=== PATIENT | female | born 1950 | race Caucasian/White ===

== ENCOUNTER → 2020-03-17 15:20 | Outpatient (BNVA) | payer MEDICARE, SELFPAY | PROVIDERS: PCP Internal Medicine; Visit Provider Internal Medicine | DX: R05 Cough (principal); R93.89 Abnormal findings on diagnostic imaging of other specified body structures; J40 Bronchitis, not specified as acute or chronic; F17.210 Nicotine dependence, cigarettes, uncomplicated; Z71.6 Tobacco abuse counseling | CPT/HCPCS: 99203 ==

== ENCOUNTER 2020-03-24 10:35 | Outpatient (REF) | payer MEDICARE, SELFPAY ==
--- NOTE | 2020-03-24 10:34 | CT_ITS ---
EXAMINATION: CT CHEST WITHOUT CONTRAST CLINICAL INFORMATION: For further evaluation of abnormal findings seen on the recent chest x-ray. COMPARISON: Chest x-ray of 01/28/2020, selected images of the head and neck CTA of 06/22/2017, chest x-ray of 10/11/2015. Renal ultrasound of 01/08/2008. TECHNIQUE: Multidetector volumetric CT imaging of the chest was done. Axial MIP volume rendering provided. Sagittal and coronal reformatted images were obtained. This CT examination was performed using dose optimization techniques as appropriate, variously including the following: *Automated exposure control. *Adjustment of mA and/or kV according to patient size (this includes techniques or standardized protocols for targeted exams where dose is matched to indication/reason for exam; i.e. extremities or head). *Use of iterative reconstruction technique. DLP: 93.89 mGy-cm FINDINGS: SQL DATA ANALYST: Unremarkable. LUNGS: No significant nodules, masses or ground-glass opacities are noted. A punctate calcified granuloma in the right apex is redemonstrated. Mild changes of centrilobular emphysema in the upper lobes. MEDIASTINUM: No significant nodules are seen in the thyroid. There is no evidence of pathologically enlarged mediastinal or hilar adenopathy. Dwxqtszl-hr-kdpwtd coronary calcifications are noted. Small hiatal hernia. Cardiac size is normal. Trachea and central bronchi are well patent. PLEURA: There is no pleural effusion. No pleural mass or thickening. AXILLA: No lymphadenopathy. UPPER ABDOMEN: Vascular calcifications are noted including renal arterial calcifications. A 2.1 cm low-attenuation lesion in the liver (series 3 image 53) represents a cyst by CT Hounsfield units criteria. Mild fullness of the right adrenal gland without discrete nodule. Nodule versus focal thickening in the left adrenal gland measuring 1.4 x [address] Hounsfield units of less than 10 suggesting adenomatous change. Lobulated contour of the right kidney in the upper pole laterally, with isodense to slightly hypodense appearance, corresponding to the more anterior lesion/bulge that appears to be a corresponding simple cyst on the previous ultrasound of 01/08/2008. The more posterior bulge is not fully evaluated on the CT. OSSEOUS STRUCTURES: No acute or suspicious osseous lesions. Multilevel mild degenerative changes in the spine. IMPRESSION: 1. No significant finding is noted corresponding to the suspected fullness noted in the left inferior hilum on the chest x-ray of 01/28/2020. 2. No significant pulmonary nodule or findings. Mild changes of emphysema. 3. Jhekslyk-lo-ohfpzi coronary calcifications. 4. Small hiatal hernia. 5. A 2.1 cm liver cyst. 6. A 1.4 x 1.0 cm left adrenal nodule representing adenoma. 7. Lobulated contour along the lateral cortex in the upper pole of the right kidney, more anterior lobulation appears to be corresponding to the simple cyst noted on the previous ultrasound. The more posterior bulge is not completely evaluated on the CT. Consider focused ultrasound correlation.
== END 2020-03-24 10:36 | disposition home or self-care (01) ==
LOC: HO.CT 10:35
PROVIDERS: Absent Provider Internal Medicine Cardiovascular Disease; PCP Internal Medicine; Visit Provider Internal Medicine
DX: J40 Bronchitis, not specified as acute or chronic (principal); R93.89 Abnormal findings on diagnostic imaging of other specified body structures
CPT/HCPCS: 71250

== ENCOUNTER 2020-04-14 08:40 | Outpatient (REF) | payer MEDICARE, SELFPAY ==
--- NOTE | 2020-04-14 12:20 | PFT_ITS ---
FLOWS: FEV1 of 94% of predicted at 1.82 L. FVC 94% of predicted at 2.43 L. FEV1 to FVC ratio of 0.75. No bronchodilator response. LUNG VOLUMES: Total lung capacity 120% of predicted at 5.53 L. Residual volume 150% of predicted at 3.14 L. Slow vital capacity 94% of predicted at 2.39 L. Expiratory reserve volume 48% of predicted at 0.26 L. Diffusion capacity is mildly decreased. IMPRESSION: No obstructive or restrictive ventilatory defect. No bronchodilator response. Increased residual volume suggests air trapping. Decreased expiratory reserve volume suggests extrathoracic restriction likely secondary to abdominal obesity. Decreased diffusion capacity suggests emphysema. MD WATSON Miguel/MODL / [id number]
== END 2020-04-14 08:41 | disposition home or self-care (01) ==
LOC: HO.RESP 08:40
PROVIDERS: Visit Provider Internal Medicine
DX: R05 Cough (principal); R49.0 Dysphonia; F17.200 Nicotine dependence, unspecified, uncomplicated; Z79.899 Other long term (current) drug therapy; Z79.82 Long term (current) use of aspirin
CPT/HCPCS: 94060; 94727; 94729; 99212

== ENCOUNTER 2020-04-20 09:48 | Outpatient (REF) | payer MEDICARE, SELFPAY ==
[2020-04-20 12:02] LABS: Blood Urea Nitrogen 17 mg/dL (9-16); Estimated Glomerular Filt Rate > 60
== END 2020-04-20 09:49 | disposition home or self-care (01) ==
LOC: HO.HMGCLDS 09:48
PROVIDERS: PCP Internal Medicine; Visit Provider Otolaryngology
DX: J38.3 Other diseases of vocal cords (principal)
CPT/HCPCS: 82565; 84520

== ENCOUNTER 2020-04-21 09:05 | Outpatient (REF) | payer MEDICARE, SELFPAY ==
--- NOTE | 2020-04-21 09:07 | CT_ITS ---
EXAMINATION: CT SOFT TISSUE NECK WITH CONTRAST CLINICAL INFORMATION: Larynx protocol. Left vocal. COMPARISON: None. TECHNIQUE: Following the administration of 100 mL of Omnipaque 300 intravenous contrast, helical imaging was performed in the axial plane with generation of coronal and sagittal reformatted images. This CT examination was performed using dose optimization techniques as appropriate, variously including the following: *Automated exposure control *Adjustment of mA and/or kV according to patient size (this includes techniques or standardized protocols for targeted exams where dose is matched to indication/reason for exam; i.e. extremities or head) *Use of iterative reconstruction technique DLP: 344 mGy-cm FINDINGS: There is bulky soft tissue lesion seen involving the left false and true vocal folds, on the left aryepiglottic fold, and anterior commissure. There is further tumor extending across the midline with involvement of the right-sided true vocal fold. There are sclerotic changes within the left arytenoid. No discrete subglottic extension is seen. A cystic/necrotic right level IIa lymph node is seen measuring 2.5 cm. No additional enlarged lymph nodes are seen. There are bilateral palatine tonsilloliths. The base of tongue appears normal. No oral cavity lesion is seen. The bilateral parotid and submandibular glands appear normal. The thyroid gland demonstrates heterogeneous attenuation related to small nodules. No upper mediastinal adenopathy is seen. There is no consolidation within the upper lungs. Background changes of emphysema are noted. Atheromatous changes are seen in the neck arteries with stenosis seen involving the proximal right internal carotid artery and left carotid bifurcation which further evaluation with carotid ultrasound could be performed. The imaged intracranial contents appear normal. Degenerative changes are seen within the spine. There is fusion across C6-C7. No destructive osseous lesions are seen. CT/CT soft tissue neck w con IMPRESSION: Bulky soft tissue lesion involving the left-sided false and true vocal folds, aryepiglottic fold and extension to the anterior commissure and right-sided true vocal fold. Metastatic adenopathy seen on the right at level 2A. No additional enlarged lymph nodes identified.
[2020-04-21] MEDS: iohexoL 350 MG/ML 100 ML INFUS..BTL IV (10:20)
== END 2020-04-21 09:06 | disposition home or self-care (01) ==
LOC: HO.CT 09:05
PROVIDERS: PCP Internal Medicine; Visit Provider Otolaryngology
DX: C32.9 Malignant neoplasm of larynx, unspecified (principal)
CPT/HCPCS: 70491; Q9967

== ENCOUNTER → 2020-08-31 13:29 | Outpatient (BNVA) | payer MEDICARE, SELFPAY | PROVIDERS: PCP Internal Medicine; Visit Provider Internal Medicine Cardiovascular Disease | DX: I25.10 Atherosclerotic heart disease of native coronary artery without angina pectoris (principal); I10 Essential (primary) hypertension | CPT/HCPCS: 99212 ==

== ENCOUNTER → 2021-02-15 12:19 | Outpatient (BNVA) | payer MEDICARE, SELFPAY | PROVIDERS: PCP Internal Medicine; Referring Provider Internal Medicine; Visit Provider Internal Medicine Cardiovascular Disease | DX: I25.10 Atherosclerotic heart disease of native coronary artery without angina pectoris (principal); I45.10 Unspecified right bundle-branch block; F17.210 Nicotine dependence, cigarettes, uncomplicated; Z98.890 Other specified postprocedural states; Z88.8 Allergy status to other drugs, medicaments and biological substances; Z79.82 Long term (current) use of aspirin; Z79.899 Other long term (current) drug therapy | CPT/HCPCS: 93005; 99212 ==

== ENCOUNTER 2021-05-07 07:59 | Outpatient (REF) | payer MEDICARE, SELFPAY ==
--- NOTE | ~2021-05-07 | MM_ITS ---
EXAMINATION: MM SCREENING DIGITAL BREAST TOMOSYNTHESIS, BILATERAL CLINICAL INFORMATION: Screening. Asymptomatic. The lifetime risk of breast cancer based on the Tyrer-Cuzick Model is 4%. COMPARISON: Mammography: 10/03/2013, 06/15/2009 TECHNIQUE: Digital breast tomosynthesis is performed in both the craniocaudal and mediolateral oblique views along with computer-aided detection (CAD). Synthesized 2D images are generated from the tomosynthesis. FINDINGS: There are scattered areas of fibroglandular density (ACR BI-RADS breast composition Category b). Breast tissue composition borders on predominantly fatty. The left breast is unremarkable. There is no interval mass or architectural abnormality. Neither breast shows abnormal calcifications. The axilla and skin contours are unremarkable. The right breast has a new 4 mm circumscribed nodule anterior 9:00 position approximately 4 cm from nipple. Patient will be recalled to further characterize with targeted ultrasound. MM/MM tomosynthesis screening BI IMPRESSION: 1. Right: New 4 mm circumscribed nodule anterior 9:00 position, possibly tiny cyst. 2. Left: No mammographic evidence of malignancy. ASSESSMENT: BI-RADS 0: Incomplete - Need Additional Imaging Evaluation RECOMMENDATION: 1. Targeted ultrasound right breast. 2. Radiology department staff will contact the patient for additional imaging. This patient's information was entered into a reminder system with a target due date for their next mammogram.
== END 2021-05-07 08:00 | disposition home or self-care (01) ==
LOC: HO.MAMMO 07:59
PROVIDERS: Visit Provider Internal Medicine
DX: Z12.31 Encounter for screening mammogram for malignant neoplasm of breast (principal)
CPT/HCPCS: 77063; 77067

== ENCOUNTER 2021-05-13 12:56 | Outpatient (REF) | payer MEDICARE, SELFPAY ==
--- NOTE | ~2021-05-13 | US_ITS ---
EXAMINATION: US DIAGNOSTIC ULTRASOUND BREAST, RIGHT CLINICAL INFORMATION: Recall from screening for new circumscribed nodule anterior 9:00 position under 5 mm. COMPARISON: Mammography 05/07/2021, 10/03/2013. TECHNIQUE: Ultrasound right breast is targeted to the outer quadrant. Grayscale imaging and color Doppler are performed without and with harmonics. FINDINGS: There is a small simple cyst 9:00 position approximately 5 cm from nipple measuring under 5 mm corresponding to the nodule on mammography. This is anechoic circumscribed with increased through-transmission of sound. No associated color flow. There is no solid mass or architectural abnormality. Results are discussed with the patient and family at time of visit. US/US breast RT limited IMPRESSION: Small simple cyst 9:00 position corresponding to finding on recent screening mammography. ASSESSMENT: BI-RADS 2: Benign RECOMMENDATION: Routine annual mammography screening. This patient's information was entered into a reminder system with a target due date for their next mammogram.
== END 2021-05-13 12:57 | disposition home or self-care (01) ==
LOC: HO.MAMMO 12:56
PROVIDERS: Visit Provider Internal Medicine
DX: N63.15 Unspecified lump in the right breast, overlapping quadrants (principal)
CPT/HCPCS: 76642

== ENCOUNTER 2021-06-15 15:20 | Emergency (ER) | payer MEDICARE, SELFPAY ==
--- NOTE | ~2021-06-15 | CT_ITS ---
EXAMINATION: CT HEAD WITHOUT CONTRAST CT CERVICAL SPINE WITHOUT CONTRAST CLINICAL INFORMATION: Fall, head injury after syncopal episode. COMPARISON: CT soft tissues of the neck 04/21/2020. CT head 01/17/2008. TECHNIQUE: Contiguous axial imaging was performed from the skull base to vertex without intravenous administration of contrast. Contiguous axial imaging was performed from the upper chest through the skull base without intravenous administration of contrast. Coronal and sagittal reformats were obtained at the acquisition workstation. This CT examination was performed using dose optimization techniques as appropriate, variously including the following: *Automated exposure control *Adjustment of mA and/or kV according to patient size (this includes techniques or standardized protocols for targeted exams where dose is matched to indication/reason for exam; i.e. extremities or head) *Use of iterative reconstruction technique DLP: 262 mGy-cm FINDINGS: Head: There is no evidence of acute intracranial hemorrhage or edematous territorial infarction. A few foci of hypoattenuation in the periventricular and deep white matter are consistent with mild microangiopathy. Rebolledo-white matter differentiation is preserved. The ventricles are normal in size and configuration. No evidence for obstructive hydrocephalus. No abnormal mass effect or midline shift. No extra-axial fluid collections. No acute soft tissue or osseous abnormalities. The mastoid air cells and paranasal sinuses are clear. Cervical Spine: The atlantooccipital and atlantoaxial articulations remain well aligned. Straightening of the normal cervical lordosis. Otherwise, there is anatomic alignment of the vertebral bodies and posterior elements. No evidence of acute fracture or subluxation. Redemonstration of fusion of the C6-C7 vertebral bodies. Mild to moderate degenerative changes are not significantly progressed since 2019. There is no prevertebral soft tissue swelling. Fullness and bulky soft tissue in the area of the vocal cords and aryepiglottic folds are indeterminate in this patient with history of a prior lesion at this site, and overall evaluation is incomplete in the absence of intravenous contrast. Normal appearance of the thyroid gland. There is a background of emphysematous changes, peripheral reticulation and septal thickening in the lung apices, not significantly changed since 2019. A 0.3 cm pulmonary nodule in the right upper lobe (12:276) is unchanged. A calcified nodule laterally within the right apex (12:257) is also unchanged. CT/CT cervical spine wo con IMPRESSION: 1. No acute intracranial abnormalities. 2. No acute cervical spinal fractures or malalignment. 3. Indeterminate soft tissue thickening and fullness in the region of the vocal cords and aryepiglottic folds for which correlation with direct visualization or CT of the neck with intravenous contrast is recommended in this patient with history of a prior at this site and metastatic cervical lymphadenopathy. 4. Emphysematous changes with stable 0.3 cm right upper lobe pulmonary nodule.
--- NOTE | ~2021-06-15 | XR_ITS ---
EXAMINATION: XR CHEST CLINICAL INFORMATION: Syncope COMPARISON: Chest x-ray 01/28/[address] chest 01/23/2020 TECHNIQUE: 2 views of the chest were obtained. FINDINGS: No significant abnormality is noted involving the heart, lungs, mediastinum, bony thorax or soft tissues. Previously seen lobular contour overlying the left miya which was shown to have no corresponding abnormality on CT scan, is no longer present. XR/XR chest 2V IMPRESSION: No acute intrathoracic disease.
[2021-06-15 15:35] VITALS: BP 142/70; BP 148/94; PULSE 66; PULSE 70; RESP 16; TEMP 36.3; O2SAT 93; O2SAT 96; BMI 25.0
--- NOTE | 2021-06-15 15:41 | ECG_ITS ---
Test Reason : Syncope Blood Pressure : / mmHG Vent. Rate : 066 BPM Atrial Rate : 066 BPM P-R Int : 158 ms QRS Dur : 132 ms QT Int : 412 ms P-R-T Axes : 079 079 028 degrees QTc Int : 431 ms Normal sinus rhythm Right bundle branch block Abnormal ECG When compared with ECG of 23-DEC-2007 20:12, Right bundle branch block is now Present Borderline criteria for Inferior infarct are no longer Present Referred By: Eladio Henderson Electronically Signed By:MARLON ESPINAL MD
--- NOTE | 2021-06-15 16:00 | ED_ITS ---
HPI - Syncope General Chief Complaint: Syncope Stated Complaint: syncope/covid + Time Seen by Provider: 06/15/21 15:22 Source: patient and EMS Mode of arrival: EMS Limitations: no limitations History of Present Illness HPI narrative: 71-year-old female with history of esophageal cancer status post chemo and radiation x1 year ago. She has she has been having decreasing appetite and increasing difficulty eating. Does not go down for several days. She was scheduled to get biopsy of her throat today which had to be canceled she tested positive for COVID on Sunday. She states she is vaccinated. She states she has cough and shortness of breath. Today she was in the bathroom when she passed out. Her daughter who lives with her found her on the ground EMS was called she was brought to ED she denies headache shoulder pain back pain or hip or knee pain. She does not remember the fall. Related Data Home Medications Medication Instructions Recorded Confirmed aspirin 81 mg tablet,delayed 81 mg PO DAILY 03/17/20 06/15/21 release levothyroxine 75 mcg tablet 1 tab PO DAILY 06/15/21 06/15/21 oxycodone 5 mg/5 mL oral solution 5 ml G-TUBE Q6H PRN 06/15/21 06/15/21 Previous Rx's Medication Instructions Recorded metoprolol tartrate 25 mg tablet 25 mg PO BID #60 tab 02/15/21 nitroglycerin 0.1 mg/hr 1 patch TRANSDERMAL DAILY #30 ea 02/15/21 transdermal 24 hour patch (Nitro-Dur) rosuvastatin 10 mg tablet (Crestor) 10 mg PO DAILY #30 tab 02/15/21 Allergies Allergy/AdvReac Type Severity Reaction Status Date / Time Zantac Allergy Unknown rash Verified 02/15/21 12:37 Review of Systems Review of Systems: Review of systems: General: Fall syncope Patient denies any fever chills recent illness Musculoskeletal: Denies back pain or body aches or other injuries HEENT: denies headache, runny nose, ear pain Respiratory: shortness of breath, cough Cardiovascular: no chest pain or palpitations : denies dysuria, frequency Abdomen: no nausea vomiting denies abdominal pain Extremities: no swelling, no pain Skin: no diaphoresis Yes all other systems are reviewed and are negative [facility] Past Medical History Medical History Bronchitis CAD (coronary artery disease) Carotid disease, bilateral Cough Hoarseness HTN (hypertension) PVD (peripheral vascular disease) Smoker Smoker Surgical History H/O carotid endarterectomy History of cardiac cath Social History Social History Cigarette Packs Per Day: 0.25 Cigarettes Per Day: 5.0 Advance Directives: Yes Advance Directives on File: Yes Advance Directives Date on File: 03/24/20 Physical Exam Vital Signs: Vital Signs: Last Vital Signs Temp 97.4 F 06/15/21 15:35 Pulse 64 06/15/21 16:34 Resp 12 06/15/21 16:34 BP 147/67 H 06/15/21 16:34 Pulse Ox 94 06/15/21 16:34 BMI result Body Mass Index 25.0 Neurological exam: CN II- XII tested. Patient is alert and oriented to person place and time. Patient has no dysphagia or dysarthia, denies good vision in all four vision [place] no nystagmus on exam, good strength to upper and lower extremities with normal reflexes to brachioradialis, wrist, patella and achilles. Negative romberg, good finger to nose and heel to antoine. General: Well-appearing well-nourished in no signs of distress HEENT: Normocephalic atraumatic no hemotympanum no nasal septal hematoma Neck: No signs of JVD, no masses no tenderness or lymphadenopathy Cardiovascular: Regular rate and rhythm Respiratory: Clear to auscultation bilaterally Abdomen: Soft nontender no masses Extremities: Normal pedal pulses no signs of edema full range of motion able lift arms above head as well as band ankles knees and hips no tenderness to palpation anywhere Skin: Dry warm no rashes Back: No tenderness full ROM MDM - Syncope MDM Narrative Medical decision making narrative: Concern for dehydration with decreased appetite and weakness patient's history of esophogeal CA cancer which might have recurred. I will get a CT scan of the head neck as she did fall and hit her head 1812 Patient is covid positive looks to have thickening around her vocal cords which is old. She is protecting her airway just fine at this time. She is not hypoxic. She is not agreeable to coming in for a syncope workup. She states she feels fine she wants to go home I feel that with her chronic conditions that she will benefit from Corinne title feel like force her to stay here. It is likely related to dehydration she was in the bathroom this happened the patient is happy with plan to go home. Lab Data Result diagrams: 06/15/21 16:42 06/15/21 17:41 Labs: Lab Results 06/15/21 06/15/21 06/15/21 Range/Units 16:42 16:42 16:43 WBC 2.6 L (4.8-10.8) X10*3/uL RBC 4.01 L (4.20-5.50) X10*6/uL Hgb 12.4 (12.0-16.0) g/dl Hct 39.0 (37.0-47.0) % MCV 97.3 (80.0-98.0) fL MCH 30.9 (27.0-33.0) pg MCHC 31.8 (31.0-35.0) g/dl RDW 12.8 (11.0-16.0) % Plt Count 179 (160-400) X10*3/uL MPV 10.0 (9.4-12.3) fL Immature Gran % (Auto) 0.4 (0.0-0.4) % Neut % (Auto) 67.3 (45-73) % Lymph % (Auto) 13.2 L (20-40) % Dupage % (Auto) 18.7 H (2-11) % Eos % (Auto) 0.0 (0-4) % Baso % (Auto) 0.4 (0-2) % Lymph # (Auto) 0.3 L (1.2-4.9) X10*3/uL Dupage # (Auto) 0.5 (0.1-1.2) X10*3/uL Eos # (Auto) 0.0 (0.0-0.4) X10*3/uL Baso # (Auto) 0.0 (0.0-0.2) X10*3/uL Abs Immat Gran (auto) 0.01 (0.00-0.03) X10*3/uL Absolute Neuts (auto) 1.7 L (2.0-8.3) x10*3/uL Absolute Nucleated RBC 0.000 (0.0-0.012) X10*3/uL Nucleated RBC % (auto) 0.0 (0.0-0.2) /100WBC PT (9.9-13.0) SEC INR (0.9-1.1) Sodium (135-145) mmol/L Potassium (3.3-5.1) mmol/L Chloride (96-108) mmol/L Carbon Dioxide (22-29) mmol/L Anion Gap (12-20) BUN (9-16) mg/dL Creatinine (0.5-1.4) mg/dL Estim Creat Clear Calc Estimated GFR Random Glucose (60-115) mg/dL Lactic Acid (0.5-2.0) mmol/L Calcium (8.4-10.2) mg/dL Total Bilirubin (0.0-1.0) mg/dL Direct Bilirubin (0.0-0.5) mg/dL AST (5-31) U/L ALT (0-31) U/L Alkaline Phosphatase (39-117) U/L Troponin I High Sens 10.2 (<3.5-17.0) ng/L Total Protein (6.5-8.0) g/dL Albumin (3.5-5.0) g/dL Lipase (8-78) U/L COVID-19 ([facility]) Positive A (Negative) COVID-19 Clin Com See Note 06/15/21 06/15/21 06/15/21 Range/Units 16:43 17:41 17:41 WBC (4.8-10.8) X10*3/uL RBC (4.20-5.50) X10*6/uL Hgb (12.0-16.0) g/dl Hct (37.0-47.0) % MCV (80.0-98.0) fL MCH (27.0-33.0) pg MCHC (31.0-35.0) g/dl RDW (11.0-16.0) % Plt Count (160-400) X10*3/uL MPV (9.4-12.3) fL Immature Gran % (Auto) (0.0-0.4) % Neut % (Auto) (45-73) % Lymph % (Auto) (20-40) % Dupage % (Auto) (2-11) % Eos % (Auto) (0-4) % Baso % (Auto) (0-2) % Lymph # (Auto) (1.2-4.9) X10*3/uL Dup[place] # (Auto) (0.1-1.2) X10*3/uL Eos # (Auto) (0.0-0.4) X10*3/uL Baso # (Auto) (0.0-0.2) X10*3/uL Abs Immat Gran (auto) (0.00-0.03) X10*3/uL Absolute Neuts (auto) (2.0-8.3) x10*3/uL Absolute Nucleated RBC (0.0-0.012) X10*3/uL Nucleated RBC % (auto) (0.0-0.2) /100WBC PT 11.9 (9.9-13.0) SEC INR 1.0 (0.9-1.1) Sodium 140 (135-145) mmol/L Potassium 4.8 (3.3-5.1) mmol/L Chloride 102 (96-108) mmol/L Carbon Dioxide 31 H (22-29) mmol/L Anion Gap 12 (12-20) BUN 22 H (9-16) mg/dL Creatinine 0.84 (0.5-1.4) mg/dL Estim Creat Clear Calc 53.6 Estimated GFR > 60 Random Glucose 104 (60-115) mg/dL Lactic Acid 1.5 (0.5-2.0) mmol/L Calcium 9.0 (8.4-10.2) mg/dL Total Bilirubin 0.3 (0.0-1.0) mg/dL Direct Bilirubin < 0.2 (0.0-0.5) mg/dL AST 25 (5-31) U/L ALT 13 (0-31) U/L Alkaline Phosphatase 60 (39-117) U/L Troponin I High Sens (<3.5-17.0) ng/L Total Protein 6.4 L (6.5-8.0) g/dL Albumin 3.8 (3.5-5.0) g/dL Lipase 20 (8-78) U/L COVID-19 ([facility]) (Negative) COVID-19 Clin Com ECG Data Attestation: I personally reviewed and interpreted this ECG as follows: ECG interpretation date: 06/15/21 ECG interpretation time: 16:03 Prior ECG tracings: not available for review Interpretation: Rate 66 right bundle branch block no signs of ischemia no ST el evations or depressions Discharge Plan Discharge Clinical Impression: Syncope, Head injury, Esophageal cancer, COVID-19, Acute dehydration Patient Disposition: Left Against Medical Advice Instructions: Dehydration (ED), COVID-19 (Coronavirus Disease 2019) (ED), Head Injury (ED), Syncope (ED) Additional Instructions: I do feel that you need to stay here in the hospital but did not feel he can foresee stay you have COVID-19 A breathing can get much worse where oxygenation is fine at this time. He also very dehydrated and he passed out. He has multiple reasons for admission understand your desire to go home number your leaving its medical advice as I recommended admission. He do change of mind please do not hesitate to come back to emergency department. Prescriptions: No Action oxycodone 5 mg/5 mL solution 5 ml G-tube Q6H PRN (Reason: Pain) RF: 0 mirtazapine 15 mg tablet,disintegrating 1 tab PO BEDTIME RF: 0 levothyroxine 75 mcg tablet 1 tab PO DAILY RF: 0 aspirin 81 mg tablet,delayed release (DR/EC) 81 mg PO DAILY RF: 0 rosuvastatin [Crestor] 10 mg tablet 10 mg PO DAILY Qty: 30 RF: 5 metoprolol tartrate 25 mg tablet 25 mg PO BID Qty: 60 RF: 5 nitroglycerin [Nitro-Dur] 0.1 mg/hr patch 24 hour 1 patch transdermal DAILY Qty: 30 RF: 5
[2021-06-15 16:34] VITALS: BP 147/67; PULSE 64; RESP 12; O2SAT 94
[2021-06-15] MEDS: 0.9 % Sodium Chloride 500 ML 999 ML IV (16:48)
[2021-06-15 16:50] LABS: MANUAL DIFF FLAG NO
[2021-06-15 16:53] LABS: Basophils Percent Auto 0.4 % (0-2); Hemoglobin 12.4 g/dl (12.0-16.0); Imm Gran Abs Auto 0.01 X10*3/uL (0.00-0.03); Imm Gran Pct Auto 0.4 % (0.0-0.4); Lymphocytes Absolute Auto 0.3 X10*3/uL (1.2-4.9); Lymphocytes Percent Auto 13.2 % (20-40); Mean Corpuscular HGB Conc 31.8 g/dl (31.0-35.0); Mean Corpuscular Hemoglobin 30.9 pg (27.0-33.0); Mean Corpuscular Volume 97.3 fL (80.0-98.0); Monocytes Absolute Auto 0.5 X10*3/uL (0.1-1.2); Monocytes Percent Auto 18.7 % (2-11); Neutrophils Absolute Auto 1.7 x10*3/uL (2.0-8.3); Neutrophils Percent Auto 67.3 % (45-73); Platelet Count 179 X10*3/uL (160-400); Red Blood Count 4.01 X10*6/uL (4.20-5.50); Red Cell Distribution Width 12.8 % (11.0-16.0); White Blood Count 2.6 X10*3/uL (4.8-10.8)
[2021-06-15 17:05] LABS: COVID-19 Test Positive (Negative); IDNOW Serial# 9DD0AD1C
[2021-06-15 17:05] LABS: Lactic Acid 1.5 mmol/L (0.5-2.0)
[2021-06-15 17:19] LABS: Troponin-I High Sensitivity 10.2 ng/L (<3.5-17.0)
[2021-06-15 18:04] LABS: Alanine Aminotransferase 13 U/L (0-31); Albumin Level 3.8 g/dL (3.5-5.0); Alkaline Phosphatase 60 U/L (39-117); Anion Gap 12 (12-20); Aspartate Amino Transferase 25 U/L (5-31); Bilirubin Direct < 0.2 mg/dL (0.0-0.5); Bilirubin Total 0.3 mg/dL (0.0-1.0); Blood Urea Nitrogen 22 mg/dL (9-16); Carbon Dioxide 31 mmol/L (22-29); Chloride 102 mmol/L (96-108); Creatinine Clr Calc Pharmacy 53.6; Estimated Glomerular Filt Rate > 60; Glucose Random 104 mg/dL (60-115); Lipase 20 U/L (8-78); Potassium 4.8 mmol/L (3.3-5.1); Sodium 140 mmol/L (135-145); Total Protein 6.4 g/dL (6.5-8.0)
[2021-06-15 18:06] LABS: Prothrombin Time 11.9 SEC (9.9-13.0)
[2021-06-15 18:24] LABS: Influenza A PCR NEGATIVE (Negative); Influenza B PCR NEGATIVE (Negative); Resp Syncy Virus RNA Qual PCR NEGATIVE (Negative); SARS COV2 PCR INHOUSE POSITIVE (Negative)
== END 2021-06-15 19:02 | disposition left against medical advice (07) ==
PROVIDERS: Emergency Provider Student in an Organized Health Care Education/Training Program
DX: R55 Syncope and collapse (principal); U07.1 COVID-19; E86.0 Dehydration; S09.90XA Unspecified injury of head, initial encounter; I10 Essential (primary) hypertension; Z85.01 Personal history of malignant neoplasm of esophagus; Z92.21 Personal history of antineoplastic chemotherapy; Z92.3 Personal history of irradiation; W19.XXXA Unspecified fall, initial encounter; Y93.9 Activity, unspecified; Y92.009 Unspecified place in unspecified non-institutional (private) residence as the place of occurrence of the external cause; Y99.9 Unspecified external cause status
CPT/HCPCS: 0241U; 36415; 70450; 71046; 72125; 80048; 80076; 83605; 83690; 84484; 85025; 85610; 87040; 87635; 93005; 99284

== ENCOUNTER → 2021-08-24 10:36 | Outpatient (BNVA) | payer MEDICARE, SELFPAY | PROVIDERS: PCP Internal Medicine; Referring Provider Internal Medicine; Visit Provider Internal Medicine Cardiovascular Disease | DX: I25.10 Atherosclerotic heart disease of native coronary artery without angina pectoris (principal) | CPT/HCPCS: 99212 ==

== ENCOUNTER 2022-01-05 13:41 | Outpatient (REF) | payer MEDICARE, SELFPAY ==
--- NOTE | ~2022-01-05 | US_ITS ---
EXAMINATION: US NON-INVASIVE ASSESSMENT OF THE ARTERIES OF BOTH LOWER EXTREMITIES CLINICAL INFORMATION: Peripheral vascular disease. COMPARISON: 06/17/2018 and 05/29/2019. TECHNIQUE: Segmental ankle pulse volume recording, pressure measurement at the ankle and ankle brachial indices were obtained of the lower extremity arterial system bilaterally. In addition, bilateral lower extremity duplex ultrasound was performed with velocity measurements and waveform analysis in the common femoral arteries, profunda femoris arteries, proximal mid and distal superficial femoral arteries, popliteal arteries and tibial vessels. This study was performed at rest only. FINDINGS: Brachial pressure right: 139 mmHg. Previously, 152. Left: 134 mmHg. Previously, 135. a) AT REST: 1. The ankle-brachial indices are: RIGHT: 0.6. Previously, 0.7 and LEFT: 0.6 previously, left 0.68. >0.97-1.25 = normal - no significant arterial disease. 0.75-0.96 = mild peripheral arterial disease. 0.5-0.74 = moderate peripheral arterial disease. <0.50 = severe peripheral arterial disease. 2. Segmental pressure at ankle: On the right, PT 78 mmHg. Previously, 107, DP 68 mmHg. Previously, 102. On the left, PT 82 mmHg. Previously, 96, DP 70 mmHg. Previously, 104. 3. PVR waveform at ankle: Dampened bilaterally. 4. Duplex exam. Velocities in cm/sec and phasicity as well as the presence of plaque are reported below. RIGHT LEG: Common Femoral: 251 cm/s and monophasic. Previously, 111. Profunda Femoris: 217 cm/s and monophasic. Previously, 172. Proximal SFA: 17 cm/s and monophasic. Previously, 45. Mid SFA: No flow. Previously, 25. Distal SFA: 97 cm/s and monophasic. Previously, 101. Popliteal: 35 cm/s and monophasic. Previously, 79. Posterior Tibial: 32 cm/s and monophasic. Previously, 22. LEFT LEG: Common Femoral: 192 cm/s and monophasic. Previously, 130. Profunda Femoris: 89 cm/s and monophasic. Previously, 83. Proximal SFA: 255 cm/s and monophasic. Previously, 180. Mid SFA: 159 cm/s and monophasic. Previously, 96. Distal SFA: 76 cm/s and monophasic. Previously, 85. Popliteal: 69 cm/s and monophasic. Previously, 185. Posterior Tibial: 69 cm/s and monophasic. Previously, 9. Incidental note made of bilateral Gerardo's cysts. US/US arterial duplex LE BI IMPRESSION: 1. By LAUREL criteria, there is moderate peripheral vascular disease bilaterally. 2. Plaque is present bilaterally. 3. On the right, there is severe disease previously reported in the mid right superficial femoral artery appears to have progressed to an occlusion. There now appears to be hemodynamically significant stenosis in the right common femoral artery which was not apparent previously. 4. On the left, there is moderate common femoral disease and severe hemodynamically significant proximal left SFA disease.
== END 2022-01-05 13:42 | disposition home or self-care (01) ==
LOC: HO.US 13:41
PROVIDERS: PCP Internal Medicine; Visit Provider Surgery Vascular Surgery
DX: I70.213 Atherosclerosis of native arteries of extremities with intermittent claudication, bilateral legs (principal)
CPT/HCPCS: 93923; 93925

== ENCOUNTER → 2022-01-10 10:15 | Outpatient (BNVA) | payer MEDICARE, SELFPAY | PROVIDERS: PCP Internal Medicine; Visit Provider Surgery Vascular Surgery | DX: I73.9 Peripheral vascular disease, unspecified (principal); I77.9 Disorder of arteries and arterioles, unspecified | CPT/HCPCS: 99212 ==

== ENCOUNTER 2022-01-13 12:53 | Outpatient (REF) | payer MEDICARE, SELFPAY ==
[2022-01-13 14:12] LABS: Blood Urea Nitrogen 24 mg/dL (9-16); Estimated Glomerular Filt Rate > 60
== END 2022-01-13 12:54 | disposition home or self-care (01) ==
LOC: HO.HMGCLDS 12:53
PROVIDERS: Visit Provider Surgery Vascular Surgery
DX: I73.9 Peripheral vascular disease, unspecified (principal)
CPT/HCPCS: 36415; 82565; 84520

== ENCOUNTER 2022-01-17 07:43 | Outpatient (REF) | payer MEDICARE, SELFPAY ==
--- NOTE | ~2022-01-17 | CT_ITS ---
STUDY PERFORMED: CTA ABDOMEN, PELVIS AND LOWER EXTREMITY RUNOFF WITH CONTRAST HISTORY: Pain in popliteal fossa and calf. COMPARISON: CT chest 03/24/2020. DESCRIPTION: Routine abdominal aorta and lower extremity runoff CTA protocol with contrast was performed. 100 mL of Omnipaque-350 was administered. 3D POSTPROCESSING: Multiple 3-D angiographic images were processed from the initial data set by the [facility] under concurrent physician supervision. This CT examination was performed using dose optimization techniques as appropriate, variously including the following: *Automated exposure control *Adjustment of mA and/or kV according to patient size (this includes techniques or standardized protocols for targeted exams where dose is matched to indication/reason for exam; i.e. extremities or head) *Use of iterative reconstruction technique DLP: 558 mGy-cm FINDINGS: VASCULAR: ABDOMINAL AORTA: Significant atherosclerotic disease present in the abdominal aorta especially infrarenal with extensive calcification with some noncalcified plaque. There is mild narrowing of the distal aorta just above the bifurcation with the opacified lumen measuring about 8 mm in size. RIGHT LOWER EXTREMITY: - Common Iliac Artery: Extensive atherosclerotic change with mild stenosis proximally. - Internal Iliac Artery: Extremely diseased, with occlusions. - External Iliac Artery: Severe disease. A distal stent is present. Just above the level of the stent, there is a focal tight stenosis. Within the stent, there is intimal hyperplasia with a tight stenosis distally. - Common Femoral Artery: Stent mentioned above extends just into the common femoral artery with a tight stenosis just below the level of the stent.. - Profunda Femoral Artery: Patent. - Superficial Femoral Artery: Occluded at its origin with reconstitution at the adductor canal. - Popliteal Artery: Free of significant disease. - Tibioperoneal Trunk: Stenoses are present. - Posterior Tibial Artery: Mild disease proximally but patent distally. - Peroneal Artery: Marked disease. - Anterior Tibial Artery: Diseased proximally but patent distally. LEFT LOWER EXTREMITY: - Common Iliac Artery: There is a tight stenosis of the common iliac/external iliac artery at it's junction (9:389). - Internal Iliac Artery: Severe disease, essentially occluded. - External Iliac Artery: Marked disease throughout with at least one area of extremely tight stenosis (9:445). - Common Femoral Artery: Severely stenotic. - Profunda Femoral Artery: Moderate narrowing. - Superficial Femoral Artery: Severe disease throughout with multiple areas of tight stenoses. - Popliteal Artery: Relatively free of disease. - Tibioperoneal Trunk: - Posterior Tibial Artery: Severe disease with occlusion midcalf. - Peroneal Artery: Severe disease throughout but patent. - Anterior Tibial Artery: Severe disease throughout except distally where the artery appears relatively normal extending into the foot. CELIOMESENTERIC ARTERIES: [id number] ostial disease involving the celiac, SMA and MADINA. RENAL ARTERIES: Single renal arteries bilaterally both with marked proximal stenoses. NONVASCULAR: Lung Bases: The visualized lung bases are unremarkable. Liver, Gallbladder and Biliary Tree: The liver is normal in size, shape, and attenuation. There is a 1.8 cm benign simple central liver cyst. No worrisome solid focal hepatic lesion or biliary ductal dilatation is present. The gallbladder is unremarkable with no evidence of radiopaque gallstones, gallbladder wall thickening, or obvious pericholecystic inflammatory changes. Pancreas: Unremarkable. Spleen: Unremarkable. Adrenal Glands: Small 1.5 cm left adrenal mass without significant change when compared to [address] At that time, Hounsfield unit measurements were fluid density consistent with a benign adenoma. Kidneys and Ureters: The kidneys are normal in size, shape, and attenuation. Bilateral benign Bosniak class I renal cortical cysts are seen. No worrisome solid renal masses are present. Calcifications in the kidneys most likely vascular and not nephrolithiasis. No hydronephrosis, hydroureter, or definitive calculi seen. No perinephric stranding. Bladder: Unremarkable. Gastrointestinal Tract: The small and large bowel are unremarkable aside from the presence of mild small bowel enterocele with prolapse of small bowel into perirectal fossa on the right. The appendix is unremarkable. Abdominal Wall: No significant hernia is appreciated. Lymph Nodes: No retroperitoneal lymphadenopathy. Pelvic Viscera: Unremarkable. Osseous Structures: Degenerative changes are present in the spine most marked at L3-L4 and L5-S1. No bony destructive lesion. CT/CT angio abd aorta runoff IMPRESSION: 1. Significant aortic disease at the bifurcation with luminal narrowing to 8 mm. 2. On the right, there is a mild proximal common iliac stenosis with severe external iliac artery disease. External iliac artery/common femoral artery stent with intimal hyperplasia and stenoses above and below the stent. SFA occlusion with reconstituted popliteal with runoff as described above. 3. On the left, there is significant common iliac and external iliac as well as common femoral disease. Severe disease throughout the SFA with relatively normal-appearing popliteal and diseased runoff as described above. 4, Bilateral renal artery stenoses. 5. Nonvascular findings significant for benign simple hepatic cyst, unchanged left adrenal benign adenoma, bilateral Bosniak class I renal cysts which need no further imaging or follow-up, small bowel enterocele and degenerative changes in the spine.
[2022-01-17] MEDS: iohexoL 350 MG/ML 100 ML INFUS..BTL IV (09:01)
== END 2022-01-17 07:44 | disposition home or self-care (01) ==
LOC: HO.CT 07:43
PROVIDERS: Visit Provider Surgery Vascular Surgery
DX: I73.9 Peripheral vascular disease, unspecified (principal)
CPT/HCPCS: 75635; Q9967

== ENCOUNTER 2022-02-28 09:53 | Outpatient (REF) | payer MEDICARE, SELFPAY ==
--- NOTE | ~2022-02-28 | US_ITS ---
EXAMINATION: US EXTRACRANIAL CAROTID DUPLEX, BILATERAL CLINICAL INFORMATION: Carotid stenosis COMPARISON: 10/28/2018 TECHNIQUE: Real-time ultrasound and Doppler techniques (integrating B-mode 2-D vascular images, Doppler spectral analysis and color-flow Doppler imaging) were utilized to interrogate the extracranial carotid arteries, the vertebral arteries and proximal subclavian arteries bilaterally. The degree of stenosis is determined by criteria similar to NASCET. FINDINGS: Right Side: 1. There is moderate atherosclerotic plaque seen in the bifurcation/proximal ICA region. 2. The common carotid artery PSV proximally is 73.0 cm/s and distally 87.0 cm/s. 3. The proximal internal carotid artery velocities are 149 cm/s systolic and 33.9 cm/s diastolic. 4. The proximal external carotid artery PSV is 211 cm/s. 5. The vertebral artery shows antegrade flow. 6. The subclavian artery waveforms are normal. Left Side: 1. There is moderate atherosclerotic plaque seen in the bifurcation/proximal ICA region. 2. The common carotid artery PSV proximally is 107 cm/s and distally 102 cm/s. 3. The proximal internal carotid artery velocities are 270 cm/s systolic and 64.1 cm/s diastolic. 4. The proximal external carotid artery PSV is 142 cm/s. 5. The vertebral artery shows antegrade flow. 6. The subclavian artery waveforms are normal. US/US carotid duplex BI IMPRESSION: 1. RIGHT: Moderate, hemodynamically significant stenosis of the proximal right internal carotid artery corresponding to a 50-79% stenosis by velocity criteria. 2. LEFT: Moderate, hemodynamically significant stenosis of the proximal left internal carotid artery corresponding to a 50-79% stenosis by velocity criteria. 3. Velocities have increased within the both internal carotid arteries compared to the prior exam consistent with worsening stenosis, especially within the left internal carotid artery
== END 2022-02-28 09:54 | disposition home or self-care (01) ==
LOC: HO.US 09:53
PROVIDERS: Visit Provider Surgery Vascular Surgery
DX: I65.23 Occlusion and stenosis of bilateral carotid arteries (principal)
CPT/HCPCS: 93880

== ENCOUNTER 2022-03-06 08:59 | Outpatient (REF) | payer MEDICARE, SELFPAY ==
[2022-03-06 11:47] LABS: Cholesterol 177 mg/dL; HDL Cholesterol 51 mg/dL; LDL Cholesterol Calculated 111 mg/dl; Triglycerides 76 mg/dL
== END 2022-03-06 09:00 | disposition home or self-care (01) ==
LOC: HO.HMGCLDS 08:59
PROVIDERS: Visit Provider Internal Medicine Cardiovascular Disease
DX: I25.10 Atherosclerotic heart disease of native coronary artery without angina pectoris (principal)
CPT/HCPCS: 36415; 80061

== ENCOUNTER → 2022-03-09 09:04 | Outpatient (BNVA) | payer MEDICARE, SELFPAY | PROVIDERS: PCP Internal Medicine; Visit Provider Surgery Vascular Surgery | DX: I77.9 Disorder of arteries and arterioles, unspecified (principal); I73.9 Peripheral vascular disease, unspecified; I25.10 Atherosclerotic heart disease of native coronary artery without angina pectoris; I10 Essential (primary) hypertension | CPT/HCPCS: 99212 ==

== ENCOUNTER 2022-04-12 07:44 | Day surgery (SDC) | payer MEDICARE, SELFPAY ==
[2022-04-12] VITALS (12 sets, daily range): BP systolic 118–171; BP diastolic 54–70; PULSE 67–75; RESP 18; TEMP 36.3–37; O2SAT 94–99; BMI 21.2
[2022-04-12 08:06] LABS: Basophils Percent Auto 0.5 % (0-2); Eosinophils Absolute Auto 0.3 X10*3/uL (0.0-0.4); Eosinophils Percent Auto 4.5 % (0-4); Hematocrit 37.6 % (37.0-47.0); Hemoglobin 12.1 g/dl (12.0-16.0); Imm Gran Abs Auto 0.02 X10*3/uL (0.00-0.03); Imm Gran Pct Auto 0.3 % (0.0-0.4); Lymphocytes Absolute Auto 0.8 X10*3/uL (1.2-4.9); MANUAL DIFF FLAG NO; Mean Corpuscular HGB Conc 32.2 g/dl (31.0-35.0); Mean Corpuscular Hemoglobin 30.5 pg (27.0-33.0); Mean Corpuscular Volume 94.7 fL (80.0-98.0); Mean Platelet Volume 9.4 fL (9.4-12.3); Monocytes Absolute Auto 0.6 X10*3/uL (0.1-1.2); Monocytes Percent Auto 9.9 % (2-11); Neutrophils Absolute Auto 4.2 x10*3/uL (2.0-8.3); Neutrophils Percent Auto 71.8 % (45-73); Platelet Count 259 X10*3/uL (160-400); Red Blood Count 3.97 X10*6/uL (4.20-5.50); Red Cell Distribution Width 13.1 % (11.0-16.0); White Blood Count 5.8 X10*3/uL (4.8-10.8)
[2022-04-12 08:23] LABS: Blood Urea Nitrogen 22 mg/dL (9-16); Creatinine Clr Calc Pharmacy 53.1; Estimated Glomerular Filt Rate > 60
[2022-04-12] MEDS: 0.9 % Sodium Chloride 1,000 ML 100 ML IVCONT (08:42)
--- NOTE | 2022-04-12 11:25 | P.OP_ITS ---
Operative Note Operative Note Date of Service: 04/12/22 Narrative: Angiogram report from [facility] Preoperative diagnosis: Atherosclerosis of bilateral lower extremity with activity limiting claudication Postoperative diagnosis: Same Procedure: 1. Ultrasound-guided right common femoral access 2. Ultrasound-guided left common femoral access 3. Aortogram 4. Left common iliac plasty 5. Right common iliac and external iliac plasty Surgeon:Herber Rubio M.D., FACS, RPVI [employer]ler Hand:None Anesthesia: Local with moderate conscious sedation. Total intraservice moderate sedation time was 74 minutes. I monitored the patient's level of consciousness and physiologic status continuously throughout the procedure. Specimens:none Drains:none Estimated blood loss: Less than 10 ml Implant: Medtronic Impact DCB 6 x 120; 6 x 80; 6 x 60 Indications: Very pleasant 71-year-old female with a prior history of endovascular intervention and an inside institution presents for activity limiting claudication. She has had noninvasive testing and was concerning for inflow disease. She now presents for endovascular intervention. The patient has signed the informed consent after reviewing risks, complications, benefits, and alternatives previously discussed with the patient. The patient was given the opportunity to ask any additional questions or voice any concerns. All questions were answered to the patient's satisfaction. Procedure in detail: Patient was brought to the angiography suite prior to which a time-out was called for patient identification and site verification. Bilateral groins were prepped and draped in the standard surgical fashion. Under ultrasound guidance right common femoral was punctured with micro puncture needle and wire. Subsequently a precision 4 [place] sheath was then placed. Bentson wire was advanced to the level of the aorta. 4 [place] Flush catheter was brought up and parked at the level of the renal arteries. Aortogram was then undertaken. In a similar fashion we recognized that the left common iliac stent had stenosis. So we punctured the left common iliac with a micro puncture needle and wire under ultrasound guidance. We then placed a 4 [place] sheath. We were able to traverse both lesions on the right and left iliac with a Glidewire Advantage. We confirmed true lumen with catheters instilled with contrast. Once this was accomplished we administered 3000 units of systemic heparin. After 5 minutes of circulation time we placed 6 [place] sheaths. We 1st turned our attention to the left iliac with a 6 x 100 balloon. In a similar fashion we initially plasty did the right side with a 6 x 40 regular balloon in the common iliac and the additional stents in the external iliac. We then brought in a 6 x 120 drug coated balloon in the left side and a 6 x 80 drug coated balloon on the right side. We did the kissing technique and we insufflated the balloon simultaneously these were brought into position in under 3 minutes and insufflated for a total of 3 minutes in duration. Once this was accomplished we did a completion angiogram demonstrated excellent result. We then turned our attention to the right external iliac. They had a prior stent there. We then placed a 6 x 60 drug coated balloon. Once again this was brought into position in under 3 minutes and insufflated for a total of 3 minutes in duration. Once this was all accomplished catheter wire sheath were then removed. StarClose closure devices were deployed bilaterally. Adequate hemostasis was achieved. Patient tolerated the procedure well. Returned to recovery with stable vitals. Interpretation of films: 1. Ultrasound demonstrates appropriate femoral puncture. Image of which was saved. 2. Aortogram demonstrates appropriate caliber aorta. Minimal disease. Appropriate take-off of the renals. 3. Iliac images demonstrate InStent restenoses of the left common iliac stent. InStent restenoses of the right common iliac stent. InStent restenoses of the right external iliac. 4. Completion angiogram demonstrated excellent flow through bilateral iliacs. Conclusion: 1. Successful plasty of bilateral iliacs with drug coated balloons. 2. Anticoagulation status: Patient will require aspirin and Plavix for 6 months. This note is constructed using voice recognition software. While every effort has been made to ensure accuracy, reinforcing steel erector errors may have been included. Thank you for allowing me to participate in the care of your patient. Yours sincerely, Herber Rubio MD, FACS, R.P.V.I.
[2022-04-12] MEDS: Clopidogrel Bisulfate 300 MG TABLET PO (12:05)
[2022-04-12] MEDS: Acetaminophen 325 MG TABLET 650 MG PO (13:20)
== END 2022-04-12 16:45 | disposition home or self-care (01) ==
PROVIDERS: Visit Provider Surgery Vascular Surgery
DX: I70.213 Atherosclerosis of native arteries of extremities with intermittent claudication, bilateral legs (principal); F17.210 Nicotine dependence, cigarettes, uncomplicated
CPT/HCPCS: 36415; 37220; 37222; 76937; 82565; 84520; 85025; C1725; C1726; C1769; C1887; C2623; J2250; J3010; Q9967

== ENCOUNTER 2022-04-23 12:23 | Emergency (ER) | payer MEDICARE, SELFPAY ==
--- NOTE | ~2022-04-23 | US_ITS ---
EXAMINATION: LEFT INGUINAL DUPLEX ARTERIAL ULTRASOUND CLINICAL INFORMATION: Question pseudoaneurysm COMPARISON: None TECHNIQUE: Targeted duplex Doppler evaluation of the left inguinal region. FINDINGS: The common femoral artery is patent with peak systolic velocity of 181 cm/s. There is a patent pseudoaneurysm off of the left common femoral artery with the neck measuring approximately 4 mm in diameter and with peak systolic velocity across the neck of approximately 59 cm/s. The pseudoaneurysm measures approximately 4 cm in diameter. No thrombus within the pseudoaneurysm is appreciated. Inferior and medial to the pseudoaneurysm there is a hematoma measuring approximately 7.8 x 4.7 x 8.0 cm in size without active blood flow to it. US/US arterial duplex LE LT IMPRESSION: Left groin pseudoaneurysm off of the common femoral artery measuring approximately 4 cm in largest dimension. Left inguinal hematoma without active flow within it. The technologist gave a preliminary report to Janine Viveros (nurse practitioner) at 1430 5:00 PM on April 23, 2022
[2022-04-23 12:37] VITALS: BP 148/92; BP 182/69; PULSE 65; PULSE 68; RESP 16; TEMP 37.2; O2SAT 100; O2SAT 99; BMI 22.6
--- NOTE | 2022-04-23 12:44 | ED.EXTPRO ---
HPI - Extremity Problem General Chief complaint: General Medical Stated complaint: LEFT GROIN PAIN Time Seen by Provider: 04/23/22 12:35 Source: patient, family and EMS Mode of arrival: EMS Limitations: no limitations History of Present Illness HPI Narrative: 71-year-old female with a history of peripheral artery disease presents with bilateral leg numbness from the knees down and pain and swelling and bruising to the left groin. Patient had aortogram, left common iliac plasty , right common iliac/external iliac plasty on 04/[address] Rubio (vascular). Patient reports since the procedure she has had some discomfort to both legs described as tightness and numbness from the knees down bilaterally. However the left groin has had increasing pain, swelling, bruising since the procedure. No fevers, chills. Family feels the left foot has been cool to touch Patient is on plavix/ASA Related Data Home Medications Medication Instructions Recorded Confirmed aspirin 81 mg tablet,delayed 81 mg PO DAILY 03/17/20 03/09/22 release levothyroxine 125 mcg tablet 125 mcg PO DAILY 03/09/22 03/09/22 Previous Rx's Medication Instructions Recorded nitroglycerin 0.1 mg/hr 1 patch transdermal DAILY #30 ea 10/26/21 transdermal 24 hour patch (Nitro-Dur) metoprolol tartrate 25 mg tablet 25 mg PO BID #60 tabs 03/15/22 rosuvastatin 40 mg tablet 40 mg PO DAILY #30 tabs 03/31/22 clopidogrel 75 mg tablet (Plavix) 75 mg PO DAILY #90 tabs 04/12/22 oxycodone 5 mg/5 mL oral solution 5 mg (5 mL) PO Q4H PRN pain 0 days 04/23/22 #90 mL Allergies Allergy/AdvReac Type Severity Reaction Status Date / Time Zantac Allergy Unknown rash Verified 03/09/22 09:15 Review of Systems Review of Systems: Yes all other systems are reviewed and are negative Constitutional: Constitutional: Reports no additional constitutional complaints, Denies body ache(s), Denies chills, Denies fever(s), Denies headache(s) and Denies weakness Eyes: Eyes: Reports no additional eye complaints and Denies change in vision ENT: Reports system reviewed and no additional complaints, except as documented, Denies dizziness, Denies headache(s), Denies nasal congestion, Denies nasal discharge and Denies neck pain Cardiovascular: Cardiovascular: Reports no additional cardiovascular complaints, Denies chest pain, Denies leg edema and Denies dyspnea Respiratory: Respiratory: Reports no additional respiratory complaints, Denies cough and Denies dyspnea Gastrointestinal: Gastrointestinal: Reports no additional gastrointestinal complaints, Denies abdominal pain, Denies diarrhea, Denies nausea and Denies vomiting Genitourinary: Genitourinary: Reports no additional female genitourinary complaints and Denies urinary incontinence Musculoskeletal: Musculoskeletal: Reports no additional musculoskeletal complaints, Denies back pain, Denies arthralgias, Denies joint swelling, Denies neck pain, Reports numbness, Reports radiating pain into limb and Denies tingling Integumentary/Breasts: Skin/Breast: Reports system reviewed and no additional complaints, except as docu and Denies rash Neurologic: Reports system reviewed and no additional complaints, except as documented, Denies Abnormal speech present, Denies dizziness, Denies headache(s), Reports numbness, Denies tingling and Denies weakness PMFSH Past Medical History Attestation statement: The following information was validated with the patient. Source: old records reviewed and nursing notes reviewed Medical History Bronchitis CAD (coronary artery disease) Carotid disease, bilateral Cough Hoarseness HTN (hypertension) PVD (peripheral vascular disease) Smoker Smoker Surgical History H/O carotid endarterectomy History of cardiac cath Social History Social History Patient Tobacco Use Status: Current everyday Tobacco user Cigarettes Per Day: 5 Advance Directives: Yes Advance Directives on File: Yes Advance Directives Date on File: 03/24/20 Physical Exam Vital Signs: Vital Signs: Last Vital Signs Temp 98.0 F 04/23/22 17:07 Pulse 68 04/23/22 17:07 Resp 16 04/23/22 17:07 BP 154/55 H 04/23/22 17:07 Pulse Ox 100 04/23/22 17:07 O2 Del Method 04/23/22 17:07 BMI result Body Mass Index 22.6 Const: General: cooperative, healthy appearing, comfortable and no acute distress Orientation/consciousness: patient oriented x3 Limitations: no limitations HEENT: Head: Yes normal to inspection Ears: hearing grossly normal bilaterally General nose exam: Normal external nose present Face and sinus: Yes normal facial exam Mouth: Normal oral and palatal mucosa present Throat: Yes posterior oropharynx normal Eyes: General: appearance normal, both eyes and all related structures Pupils: Equal, round and reactive pupils present Neck: Neck: Yes normal visual inspection Chest: Chest palpation & inspection: normal inspection of the chest Resp: Effort & Inspection: normal respiratory effort Auscultation: clear to auscultation bilaterally Cardio: Rate: regular rate Rhythm: regular rhythm Peripheral pulses: Peripheral pulses 2+ throughout GI: Inspection: Yes normal to inspection Palpation (GI): Soft to palpation and nontender Auscultation: normal bowel sounds Abdomen image: 1. Puncture site noted with hematoma and extensive surrounding ecchymosis over lower abdomen, left medial thigh and over groin. +femoral pulse. No thrill or bruit. 2. Puncture site noted to left groin. No ecchymosis/hematoma noted. +palpable pulse Back/Spine/Pelvis: Thoracic/Lumbar Spine: thoracic and lumbar spine normal to inspection Skin: General skin exam: no rashes or lesions noted Neuro: General: patient oriented x3, no focal motor deficits and normal sensation to monofilament Cranial nerves: Yes Equal, round and reactive pupils present Cognition (Neuro): normal cognition Speech: No Abnormal speech present Gait exam (Neuro): Normal gait present Motor exam (neuro): 5/5 motor strength present throughout Extrem: Other: Both lower extremities are warm to touch. Sensation is intact although patient reports is diminished. Patient is able to dorsiflex and plantar flex the feet and ankles with no difficulty. Normal cap refill. Pulses are diminished bilaterally-nursing to perform Doppler pulses General: Yes normal to inspection Course Course Course Narrative: Nursing able to obtain bilateral doppler pulses. Call to Dr Rubio Reevaluation(s) Reevaluation #1: [id number]-ultrasound shows a suture aneurysm approximately 4 cm with a large hematoma. Patient's hemoglobin on April 12 was 12.1. Today it is 8.8. Will discuss with vascular Reevaluation #2: 1600- IMPRESSION: Left groin pseudoaneurysm off of the common femoral artery measuring approximately 4 cm in largest dimension. ? Left inguinal hematoma without active flow within it. Second call to vascular to discuss. Consultations Consultation #1: [id number]-Spoke to Dr Rubio. Recommended arterial US to r/o pseudoaneyrsym -after the US returned I did speak to Dr Rubio again. He would like to see the patient in the office to do an injection of the pseudoaneurysm. He would like this to be done when the hematoma is improved. We discussed the patient's labs. He does not feel like patient needs any repeat CBC. Bleeding is controlled on the ultrasound. No active bleeding seen. He will see the patient in the office on Sunday. Will send patient home with oxycodone p.r.n. for pain. Reviewed worrisome signs and symptoms of when to return to the emergency room. Comfortable discharge home. Medications Administered Discontinued Medications Generic Name Dose Route Start Last Admin Trade Name Freq PRN Reason Stop Dose Admin Morphine Sulfate 2 mg 04/23/22 12:44 04/23/22 13:20 Morphine Sulfate 2 Mg/Ml Cartridge IVPUSH 04/23/22 12:45 2 mg ONCE ONE Administration Protocol MDM - Extremity (Nontraumatic) MDM Narrative Medical decision making narrative: 71 yo female with history of PAD who had an aortogram, left common iliac plasty and right common iliac/external iliac plasty on 04/12 here with numbness to bilateral lower legs from knees down since the procedure with tightness to both legs. Also increasing ecchymosis/swelling/pain to left groin puncture site with concern from family that left foot is cool to touch. Medical Records Attestation: I reviewed the patient's medical records. Lab Data Attestation: I reviewed the patient's lab results. Result diagrams: 04/23/22 13:37 04/23/22 13:17 Labs: Lab Results 04/23/22 04/23/22 04/23/22 Range/Units 13:17 13:17 13:37 WBC 8.1 (4.8-10.8) X10*3/uL RBC 2.90 L D (4.20-5.50) X10*6/uL Hgb 8.8 L D (12.0-16.0) g/dl Hct 27.0 L D (37.0-47.0) % MCV 93.1 (80.0-98.0) fL MCH 30.3 (27.0-33.0) pg MCHC 32.6 (31.0-35.0) g/dl RDW 13.2 (11.0-16.0) % Plt Count 381 D (160-400) X10*3/uL MPV 9.1 L (9.4-12.3) fL Immature Gran % (Auto) 0.5 H (0.0-0.4) % Neut % (Auto) 77.4 H (45-73) % Lymph % (Auto) 10.5 L (20-40) % [place] % (Auto) 7.9 (2-11) % Eos % (Auto) 3.1 (0-4) % Baso % (Auto) 0.6 (0-2) % Lymph # (Auto) 0.9 L (1.2-4.9) X10*3/uL [place] # (Auto) 0.6 (0.1-1.2) X10*3/uL Eos # (Auto) 0.3 (0.0-0.4) X10*3/uL Baso # (Auto) 0.1 (0.0-0.2) X10*3/uL Abs Immat Gran (auto) 0.04 H (0.00-0.03) X10*3/uL Absolute Neuts (auto) 6.3 (2.0-8.3) x10*3/uL Absolute Nucleated RBC 0.000 (0.0-0.012) X10*3/uL Nucleated RBC % (auto) 0.0 (0.0-0.2) /100WBC PT 11.4 (10.0-13.1) SEC INR 1.0 (0.9-1.1) Sodium 138 (135-145) mmol/L Potassium 4.5 (3.3-5.1) mmol/L Chloride 101 (96-108) mmol/L Carbon Dioxide 24 (22-29) mmol/L Anion Gap 18 (12-20) BUN 20 H (9-16) mg/dL Creatinine 0.74 (0.5-1.4) mg/dL Estim Creat Clear Calc 51.1 Estimated GFR > 60 Random Glucose 95 (60-115) mg/dL Calcium 9.3 (8.4-10.2) mg/dL Urine Color Urine Appearance Urine pH (5.0-9.0) Ur Specific [place] (1.005-1.025) Urine Protein (Neg-Trace) mg/dL Urine Glucose (UA) (Negative) mg/dL Urine Ketones (Negative) mg/dL Urine Blood (Negative) Urine Nitrite (Negative) Ur Leukocyte Esterase (Negative) 04/23/22 Range/Units 13:49 WBC (4.8-10.8) X10*3/uL RBC (4.20-5.50) X10*6/uL Hgb (12.0-16.0) g/dl Hct (37.0-47.0) % MCV (80.0-98.0) fL MCH (27.0-33.0) pg MCHC (31.0-35.0) g/dl RDW (11.0-16.0) % Plt Count (160-400) X10*3/uL MPV (9.4-12.3) fL Immature Gran % (Auto) (0.0-0.4) % Neut % (Auto) (45-73) % Lymph % (Auto) (20-40) % [place] % (Auto) (2-11) % Eos % (Auto) (0-4) % Baso % (Auto) (0-2) % Lymph # (Auto) (1.2-4.9) X10*3/uL [place] # (Auto) (0.1-1.2) X10*3/uL Eos # (Auto) (0.0-0.4) X10*3/uL Baso # (Auto) (0.0-0.2) X10*3/uL Abs Immat Gran (auto) (0.00-0.03) X10*3/uL Absolute Neuts (auto) (2.0-8.3) x10*3/uL Absolute Nucleated RBC (0.0-0.012) X10*3/uL Nucleated RBC % (auto) (0.0-0.2) /100WBC PT (10.0-13.1) SEC INR (0.9-1.1) Sodium (135-145) mmol/L Potassium (3.3-5.1) mmol/L Chloride (96-108) mmol/L Carbon Dioxide (22-29) mmol/L Anion Gap (12-20) BUN (9-16) mg/dL Creatinine (0.5-1.4) mg/dL Estim Creat Clear Calc Estimated GFR Random Glucose (60-115) mg/dL Calcium (8.4-10.2) mg/dL Urine Color Yellow Urine Appearance Clear Urine pH 7.5 (5.0-9.0) Ur Specific [place] 1.010 (1.005-1.025) Urine Protein Negative (Neg-Trace) mg/dL Urine Glucose (UA) Negative (Negative) mg/dL Urine Ketones Negative (Negative) mg/dL Urine Blood Negative (Negative) Urine Nitrite Negative (Negative) Ur Leukocyte Esterase Negative (Negative) Imaging Data arterial US: Attestation: I personally reviewed and interpreted this imaging study as follows: Radiologist's impression: [address] [address] Ultrasound Report Signed Patient: Bianca Swift MR#: [id number] : 1950 Acct:[id number] Age/Sex: 71 / F ADM Date: 04/23/22 Loc: .ED Attending Dr: Ordering Physician: Janine Viveros NP Date of Service: 04/23/22 Procedure(s): US arterial duplex LE LT Accession Number(s): [id number] cc: Janine Viveros NP~ EXAMINATION: LEFT INGUINAL DUPLEX ARTERIAL ULTRASOUND CLINICAL INFORMATION: Question pseudoaneurysm? COMPARISON: None? TECHNIQUE: Targeted duplex Doppler evaluation of the left inguinal region.? FINDINGS: The common femoral artery is patent with peak systolic velocity of 181 cm/s. There is a patent pseudoaneurysm off of the left common femoral artery with the neck measuring approximately 4 mm in diameter and with peak systolic velocity across the neck of approximately 59 cm/s. The pseudoaneurysm measures approximately 4 cm in diameter. No thrombus within the pseudoaneurysm is appreciated. Inferior and medial to the pseudoaneurysm there is a hematoma measuring approximately 7.8 x 4.7 x 8.0 cm in size without active blood flow to it. US/US arterial duplex LE LT IMPRESSION: Left groin pseudoaneurysm off of the common femoral artery measuring approximately 4 cm in largest dimension. ? Left inguinal hematoma without active flow within it. ? The technologist gave a preliminary report to Janine Viveros (nurse practitioner) at 1430 5:00 PM on April 23, 2022? Critical Care Time Critical Care Time Critical Care Time: Yes Total Critical Care Time: 30 Attestation: Discussion with vascular Discharge Plan Discharge Clinical Impression: Pseudoaneurysm following procedure, Anemia Patient Disposition: Home, Self-Care Instructions: Anemia (ED), Pseudoaneurysm (ED) Additional Instructions: You do have a pseudoaneurysm at the left groin. Dr. Rubio will likely treat this with an injection. He would like to see you at your scheduled appointment on Sunday. He will discuss this further with you at that time. Take the pain medication as needed Expect to have some pain. You also are mildly anemic so you may feel weak when you move around for the next few days Prescriptions: New oxycodone 5 mg/5 mL solution 5 mg PO Q4H PRN (Reason: pain) Qty: 90 0RF Rx Instructions: Partial Fill upon patient request. No Action nitroglycerin [Nitro-Dur] 0.1 mg/hr patch 24 hour 1 patch transdermal DAILY Qty: 30 5RF Rx Instructions: allow nitrate-free interval of approx. 10-12 hrs per 24-hour period metoprolol tartrate 25 mg tablet 25 mg PO BID Qty: 60 5RF rosuvastatin 40 mg tablet 40 mg PO DAILY Qty: 30 5RF clopidogrel [Plavix] 75 mg tablet 75 mg PO DAILY Qty: 90 1RF aspirin 81 mg tablet,delayed release (DR/EC) 81 mg PO DAILY levothyroxine 125 mcg tablet 125 mcg PO DAILY Referrals: Herber Rubio MD [Physician] - 2 days Interventions: ED Discharge Assessment Last Done: 04/23/22 17:11 Discharge Date/Time: 04/23/22 17:11
[2022-04-23 13:20] VITALS: RESP 18
[2022-04-23] MEDS: Morphine Sulfate 2 MG/ML CARTRIDGE IVPUSH (13:20)
--- NOTE | 2022-04-23 13:41 | PC.NURSE ---
patient a/ox4 . liban . lungs diminished throughout , patient has history of smoking . breathing even , labored due to pain level of 10 out of 10 . heart rate regular at 67 beats per minute . patient has history of angioplasty being done on April 12 at [facility] . Site of angioplasty is left groin is raised , swollen , bruised and yellow . patient also reports constant burning and pain shooting down her leg . patient has IV placed in right fore arm . labs have been sent . urine has been obtained . patient has been medicated with 2mg morphine as ordered by provider . positive pedal pulses noted by this RN by doppler bilaterally marked , provider aware . patient aware of plan of care .
[2022-04-23 13:42] LABS: MANUAL DIFF FLAG NO
[2022-04-23 13:50] LABS: Basophils Absolute Auto 0.1 X10*3/uL (0.0-0.2); Basophils Percent Auto 0.6 % (0-2); Eosinophils Absolute Auto 0.3 X10*3/uL (0.0-0.4); Eosinophils Percent Auto 3.1 % (0-4); Imm Gran Abs Auto 0.04 X10*3/uL (0.00-0.03); Imm Gran Pct Auto 0.5 % (0.0-0.4); Lymphocytes Absolute Auto 0.9 X10*3/uL (1.2-4.9); Lymphocytes Percent Auto 10.5 % (20-40); Mean Corpuscular HGB Conc 32.6 g/dl (31.0-35.0); Mean Corpuscular Hemoglobin 30.3 pg (27.0-33.0); Mean Corpuscular Volume 93.1 fL (80.0-98.0); Mean Platelet Volume 9.1 fL (9.4-12.3); Monocytes Absolute Auto 0.6 X10*3/uL (0.1-1.2); Monocytes Percent Auto 7.9 % (2-11); Neutrophils Absolute Auto 6.3 x10*3/uL (2.0-8.3); Neutrophils Percent Auto 77.4 % (45-73); Platelet Count 381 X10*3/uL (160-400); Red Cell Distribution Width 13.2 % (11.0-16.0); White Blood Count 8.1 X10*3/uL (4.8-10.8)
[2022-04-23 13:50] LABS: Prothrombin Time 11.4 SEC (10.0-13.1)
[2022-04-23 13:55] LABS: Hemoglobin 8.8 g/dl (12.0-16.0)
[2022-04-23 13:56] LABS: Appearance Urine Clear; Color Urine Yellow; Glucose Urine UA Negative (Negative); Leukocyte Esterase Urine Negative (Negative); Nitrite Urine Negative (Negative); PH 7.5 (5.0-9.0); Urine Blood Negative (Negative); Urine Ketones Negative (Negative); Urine Protein Negative (Neg-Trace)
[2022-04-23 14:01] LABS: Anion Gap 18 (12-20); Blood Urea Nitrogen 20 mg/dL (9-16); Calcium 9.3 mg/dL (8.4-10.2); Carbon Dioxide 24 mmol/L (22-29); Chloride 101 mmol/L (96-108); Creatinine Clr Calc Pharmacy 51.1; Estimated Glomerular Filt Rate > 60; Glucose Random 95 mg/dL (60-115); Potassium 4.5 mmol/L (3.3-5.1); Sodium 138 mmol/L (135-145)
[2022-04-23 15:28] VITALS: BP 155/51; PULSE 67; RESP 13; TEMP 36.8; O2SAT 100
[2022-04-23 17:07] VITALS: BP 154/55; PULSE 68; RESP 16; TEMP 36.7; O2SAT 100
== END 2022-04-23 17:11 | disposition home or self-care (01) ==
PROVIDERS: Nurse Practitioner Family; Emergency Provider Emergency Medicine; PCP Internal Medicine
DX: R10.30 Lower abdominal pain, unspecified (principal); R20.0 Anesthesia of skin; R60.0 Localized edema; I72.4 Aneurysm of artery of lower extremity; F17.210 Nicotine dependence, cigarettes, uncomplicated; Z71.6 Tobacco abuse counseling; Z79.899 Other long term (current) drug therapy
CPT/HCPCS: 36415; 80048; 81003; 85025; 85610; 93926; 96374; 99284; J2270

== ENCOUNTER → 2022-04-25 09:38 | Outpatient (BNVA) | payer MEDICARE, SELFPAY | PROVIDERS: PCP Internal Medicine; Visit Provider Surgery Vascular Surgery | DX: T81.718D Complication of other artery following a procedure, not elsewhere classified, subsequent encounter (principal); I72.4 Aneurysm of artery of lower extremity | CPT/HCPCS: 99212 ==

== ENCOUNTER 2022-05-08 09:30 | Outpatient (REF) | payer MEDICARE, SELFPAY ==
[2022-05-08 12:16] LABS: Cholesterol 155 mg/dL; HDL Cholesterol 46 mg/dL; LDL Cholesterol Calculated 89 mg/dl; Triglycerides 104 mg/dL
[2022-05-10 16:23] LABS: CRP High Sensitivity 2.4 mg/L
== END 2022-05-08 09:31 | disposition home or self-care (01) ==
LOC: HO.HMGCLDS 09:30
PROVIDERS: PCP Internal Medicine; Visit Provider Internal Medicine Cardiovascular Disease
DX: I25.10 Atherosclerotic heart disease of native coronary artery without angina pectoris (principal); E78.5 Hyperlipidemia, unspecified
CPT/HCPCS: 36415; 80061; 86141

== ENCOUNTER → 2022-05-09 09:27 | Outpatient (BNVA) | payer MEDICARE, SELFPAY | PROVIDERS: PCP Internal Medicine; Visit Provider Surgery Vascular Surgery | DX: T81.718A Complication of other artery following a procedure, not elsewhere classified, initial encounter (principal); I72.4 Aneurysm of artery of lower extremity | CPT/HCPCS: 99212 ==

== ENCOUNTER → 2022-06-15 10:38 | Outpatient (BNVA) | payer MEDICARE, SELFPAY | PROVIDERS: PCP Internal Medicine; Visit Provider Surgery Vascular Surgery | DX: T81.718A Complication of other artery following a procedure, not elsewhere classified, initial encounter (principal); I72.4 Aneurysm of artery of lower extremity | CPT/HCPCS: 99212 ==

== ENCOUNTER 2022-06-20 14:50 | Outpatient (REF) | payer MEDICARE, SELFPAY ==
--- NOTE | ~2022-06-20 | US_ITS ---
EXAMINATION: US ARTERIAL DUPLEX LEFT LEG CLINICAL INFORMATION: Follow-up pseudoaneurysm. COMPARISON: Ultrasound arterial duplex left groin. TECHNIQUE: Limited ultrasound Doppler imaging to the left groin was performed. FINDINGS: Previously visualized pseudoaneurysm is again visualized measuring 2.3 x 1.4 x 1.8 cm. Previously aneurysm measured 4 cm in largest diameter and a smaller. The fistulous connection between the common femoral artery and the pseudoaneurysm has thrombosed and closed. Currently there is no flow seen. There is some thrombus visualized in the aneurysm. US/US arterial duplex LE IMPRESSION: Partially thrombosed pseudoaneurysm left groin with no flow seen in the fistulous connection between the common femoral artery and the pseudoaneurysm.
== END 2022-06-20 14:51 | disposition home or self-care (01) ==
LOC: HO.US 14:50
PROVIDERS: Visit Provider Surgery Vascular Surgery
DX: I72.4 Aneurysm of artery of lower extremity (principal); T81.718A Complication of other artery following a procedure, not elsewhere classified, initial encounter; I70.212 Atherosclerosis of native arteries of extremities with intermittent claudication, left leg
CPT/HCPCS: 93926

== ENCOUNTER → 2022-06-27 09:50 | Outpatient (BNVA) | payer MEDICARE, SELFPAY | PROVIDERS: PCP Internal Medicine; Visit Provider Surgery Vascular Surgery | DX: I73.9 Peripheral vascular disease, unspecified (principal); I77.9 Disorder of arteries and arterioles, unspecified | CPT/HCPCS: 99212 ==

== ENCOUNTER → 2022-09-07 11:14 | Outpatient (BNVA) | payer MEDICARE, SELFPAY | PROVIDERS: PCP Internal Medicine; Referring Provider Internal Medicine; Visit Provider Internal Medicine Cardiovascular Disease | DX: I45.10 Unspecified right bundle-branch block (principal); I25.10 Atherosclerotic heart disease of native coronary artery without angina pectoris; I10 Essential (primary) hypertension; I73.9 Peripheral vascular disease, unspecified; F17.210 Nicotine dependence, cigarettes, uncomplicated; Z98.890 Other specified postprocedural states | CPT/HCPCS: 93005; 99212 ==

== ENCOUNTER 2022-09-11 12:18 | Outpatient (REF) | payer MEDICARE, SELFPAY ==
--- NOTE | ~2022-09-11 | US_ITS ---
EXAMINATION: Noninvasive assessment of the bilateral lower extremities with ARTERIAL DUPLEX and ANKLE BRACHIAL INDICES (ABIs). CLINICAL INFORMATION: Peripheral vascular disease TECHNIQUE: Duplex Doppler techniques with waveform analysis and measurement of velocities in the bilateral common femoral, profunda femoris, superficial femoral, popliteal and tibial arteries were performed. Additionally, ankle pulse volume recordings, ankle pressure measurements and ankle brachial indices were obtained of the lower extremity arterial system bilaterally. The study was performed only at rest. COMPARISON: Ultrasound from 06/20/2022 and 04/23/2022. CTA from 01/17/2022. Arteriogram from 04/12/2022 FINDINGS: DIRECT DUPLEX DOPPLER FINDINGS: RIGHT LEG: Common femoral artery: 18.1 cm/s, phasicity: Monophasic, minimal flow Profunda femoris artery: 128 cm/s, phasicity: Monophasic Superficial femoral artery (proximal): Occluded Superficial femoral artery (mid): Occluded Superficial femoral artery (distal): Occluded Popliteal artery: 82.7 cm/s, phasicity: Monophasic Posterior tibial artery: 39.3 cm/s, phasicity: Monophasic Peroneal artery: 26.5 cm/s, phasicity: Monophasic LEFT LEG: Common femoral artery: 77.4 cm/s, phasicity: Monophasic. Previously seen the pseudoaneurysm is no longer visualized Profunda femoris artery: 55.8 cm/s, phasicity: Monophasic Superficial femoral artery (proximal): 80.3 cm/s, phasicity: Monophasic Superficial femoral artery (mid): 83.3 cm/s, phasicity: Monophasic Superficial femoral artery (distal): 78.0 cm/s, phasicity: Monophasic Popliteal artery: 63.3 cm/s, phasicity: Monophasic Posterior tibial artery: 12.6 cm/s, phasicity: Monophasic Peroneal artery: 24.6 cm/s, phasicity: Monophasic ANKLE-BRACHIAL INDEX: Right: 0.72, previously 0.56? Left: Not detectable ANKLE PRESSURES: Right: PT 116, DP 66 Left: PT?Not detectable, DP?Not detectable ANKLE PVR WAVEFORMS: Right: Abnormal Left: Not detectable US/US arterial duplex LE BI IMPRESSION: Right leg: Minimal flow in the right common femoral artery with monophasic flow consistent with occlusive changes in the more proximal iliac arteries. 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 No significant change compared to the prior CTA. Left leg: Monophasic waveforms throughout the left lower extremity consistent with stenosis versus occlusion of the more proximal left iliac arteries. Previously seen pseudoaneurysm has resolved. 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
== END 2022-09-11 12:19 | disposition home or self-care (01) ==
LOC: HO.US 12:18
PROVIDERS: PCP Internal Medicine; Visit Provider Surgery Vascular Surgery
DX: I70.213 Atherosclerosis of native arteries of extremities with intermittent claudication, bilateral legs (principal)
CPT/HCPCS: 93925

== ENCOUNTER → 2022-09-14 09:51 | Outpatient (BNVA) | payer MEDICARE, SELFPAY | PROVIDERS: PCP Internal Medicine; Visit Provider Surgery Vascular Surgery | DX: I73.9 Peripheral vascular disease, unspecified (principal); I77.9 Disorder of arteries and arterioles, unspecified | CPT/HCPCS: 99212 ==

== ENCOUNTER 2023-09-14 07:30 | Outpatient (AMB) | payer MEDICARE, SELFPAY ==
--- NOTE | 2023-09-14 07:44 | A.OFFPC_ITS ---
Vital Signs 09/14/23 07:48 Height 5 ft 1 in Weight 115 lb BMI 21.7 BP 148/80 H Blood Pressure Location Rt brachial Position Sitting Pulse 50 Pulse Source Pulse Oximeter Pulse Oximetry (%) 99 Oxygen Delivery Method Room Air Intake Visit Reasons: New Patient Intake Note: Pt is here today as a transfer patient from Dr. Perez to [facility] Allergies ranitidine [From Zantac] Allergy (Unknown, Verified 09/14/23 07:44) Rash lisip Adverse Reaction (Intermediate, Uncoded 09/14/23 08:32) Cough Medication List - Last Reconciled 09/14/23 by Meron Gil MD aspirin 81 mg PO DAILY ezetimibe 10 mg PO DAILY metoprolol tartrate 25 mg PO BID nitroglycerin 0.1 mg/hr (Nitro-Dur) 1 patch transdermal DAILY rosuvastatin 40 mg PO DAILY Tobacco use date assessed: 09/14/23 Fall risk assessment: No Falls in past year Last assessed Fall Risk: 09/14/23 Dental Screening Dental Screen Date: 09/14/23 Did you have a dental visit in the last 12 months?: No Was dental information given to patient?: No HPI New Patient HPI Details Patient presents for a new patient visit. Past medical history includes head and neck cancer status post radiation 08/2020, PAD hX of iliac stent/R fem-pop bypass f/u , lifetime smoker. was hospitalized at [facility] discharged on 08/26 for failure to thrive and worsening shortness of breath. Patient underwent tracheostomy placement for post radiation scarring of the trachea and G-tube placement. Patient follows up with speech therapist, ENT in [place] and is established with radiation oncology Dr. Rodriguez at [facility] who has been monitoring patient for recurrent cancer and lung nodules, gets every [address] upper chest [facility] Medical History S/P angiogram of extremity (~04/12/22) PVD (peripheral vascular disease) HTN (hypertension) Carotid disease, bilateral CAD (coronary artery disease) Cough Smoker Bronchitis Smoker Surgical History H/O carotid endarterectomy History of cardiac cath Social History Housing: House Patient Tobacco Use Status: Former Tobacco user Cigarettes Per Day: 5 e-Cigarette/Vaping Use: Never Used Advance Directives Date on File: 03/24/20 service: No Current occupational status: disabled Cognitive needs: No Hearing needs: No Vision needs: Yes Questionnaire PHQ-9 Over the last 2 weeks, how often have you been bothered by any of the following problems? 1. Little interest or pleasure in doing things: several days 2. Feeling down, depressed, or hopeless: several days 3. Trouble falling or staying asleep, or sleeping too much: several days 4. Feeling tired or having little energy: several days 5. Poor appetite or overeating: not at all 6. Feeling bad about yourself - or that you are a failure or have let yourself or your family down: several days 7. Trouble concentrating on things, such as reading the newspaper or watching television: several days 8. Moving or speaking so slowly that other people could have noticed. Or the opposite - being so fidgety or restless that you have been moving around a lot more than usual: several days 9. Thoughts that you would be better off or of hurting yourself in some way: not at all Total score: 7 Source: Developed by Drs. Shiv Hammer, Jeannie Gerardo, Hebert Catalan and colleagues, with an educational nelson from [employer]. Thrive Questionnaire Date Thrive assessed: 09/14/23 I am a: Patient What is your living situation today?: I have a steady place to live Within the past 12 months, did the food you bought not last and you didn't have the money to get more?: Never true Within the past 12 months, did you worry whether your food would run out before you got money to buy more?: Never true Do you have trouble paying for medicines?: No Do you have trouble getting transportation to medical appointments?: No Do you have trouble paying your heating and electricity bill?: No Do you have trouble taking care of your child, family member or friend?: No Do you have trouble with day-to-day activities such as bathing, preparing meals, shopping, managing finances, etc.?: No Are you currently unemployed and looking for a job?: No Are you interested in more education?: No THRIVE Score: 0 AUDIT C Alcohol Use Questionnaire (AUDIT-C) 1. How often do you have a drink containing alcohol?: Never Total Score: 0 ARIELLE-7 AMB Questionnaire ARIELLE-7 Date ARIELLE - 7 assessed: 09/14/23 Feeling nervous, anxious, or on edge: 1 = Several days Not being able to stop or control worryin = Several days Worrying too much about different things: 1 = Several days Trouble relaxin = Several days Being so restless that it is hard to sit still: 0 = Not at all Becoming easily annoyed or irritable: 1 = Several days Feeling afraid as if something awful might happen: 2 = More than half the days Total ARIELLE-7 score (0-4 normal; 5-9 mild; 10-14 moderate; 15-21 severe): 7 Source: Developed by Drs. Shiv Hammer, Jeannie Gerardo, Hebert Catalan and colleagues, with an educational nelson from [employer]. Review of Systems Const All systems reviewed & are unremarkable except as noted in HPI and below Eyes Reports no additional complaints ENT Reports no additional complaints Card Reports no additional complaints Resp Reports no additional complaints GI Reports no additional complaints Reports no additional complaints Physical exam (Primary Care) Vital Signs: Last Vital Signs Pulse 50 09/14/23 07:48 BP 148/80 H 09/14/23 07:48 Pulse Ox 99 09/14/23 07:48 Oxygen Delivery Method Room Air 09/14/23 07:48 BMI result Body Mass Index 21.7 Tobacco/Smoking Status: Tobacco use Status Tobacco use date assessed 09/14/23 09/14/23 07:51 Patient Tobacco Use Status Former Tobacco user 09/14/23 07:51 e-Cigarette/Vaping Use Never Used 09/14/23 07:51 PHQ-9: PHQ-9 Score PHQ-9: Total score 7 09/14/23 11:40 Thrive Assessment: Date of Thrive Assessment Date Thrive assessed 09/14/23 09/14/23 07:55 Const General: no acute distress HENMT Other: Tracheostomy in place Face and sinus: Yes normal facial exam Resp Effort & Inspection: normal respiratory effort Auscultation: diminished lung sounds Cardio Rhythm: regular rhythm Heart sounds: S1 normal heart sound present and S2 normal heart sound present GI Inspection: Yes normal to inspection and Yes GJ-tube present Palpation (GI): Soft to palpation Percussion: Yes normal to percussion Auscultation: normal bowel sounds Assessment and Plan Assessment & Plan (1) CAD (coronary artery disease): Comment: [employer] DISTRIBUTION CONSULTANT of RCA with collaterals, medical management. Code(s): I25.10 - Atherosclerotic heart disease of [place] coronary artery without angina pectoris Plan: Continue statin and Zetia metoprolol an 81 mg of aspirin. Follow-up with Cardiology (2) HTN (hypertension): Code(s): I10 - Essential (primary) hypertension Plan: Aaa 2.5 mg of amlodipine for hypertension follow-up in 2 months with fasting labs (3) PAD (peripheral artery disease): Comment: 04/12/2022- right and left common iliac plasty, f/u Dr. 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, F/U ENT in [place] Code(s): Z93.0 - Tracheostomy status Plan: Follow-up with ENT (6) Carotid disease, bilateral: Comment: 07/17/2017 - right carotid endarterectomy Code(s): I77.9 - Disorder of arteries and arterioles, unspecified Plan: Follow-up with vascular surgeon (7) Smoker: Code(s): F17.200 - Nicotine dependence, unspecified, uncomplicated Plan: Patient quit smoking 6 months (8) Laryngeal cancer: Comment: s/p RTx chemo 2020, Code(s): C32.9 - Malignant neoplasm of larynx, unspecified Plan: Follow-up with ENT Oncology Orders: Orders Comprehensive [place]. Panel Fast 2 Months I10 - Essential (primary) hypertension, I25.10 - Atherosclerotic heart disease of [place] coronary artery without angina pectoris, I73.9 - Peripheral vascular disease, unspecified Complete Blood Count Auto Diff 2 Months I10 - Essential (primary) hypertension, I25.10 - Atherosclerotic heart disease of [place] coronary artery without angina pectoris, I73.9 - Peripheral vascular disease, unspecified Lipid Panel 2 Months I10 - Essential (primary) hypertension, I25.10 - Atherosclerotic heart disease of [place] coronary artery without angina pectoris, I73.9 - Peripheral vascular disease, unspecified TSH reflex Free T4 2 Months I10 - Essential (primary) hypertension, I25.10 - Atherosclerotic heart disease of [place] coronary artery without angina pectoris, I73.9 - Peripheral vascular disease, unspecified Medications: New amlodipine 2.5 mg PO DAILY 90 tabs 0RF Coding Level of Care Code Est Pt Level 4 (61208) Diagnoses CAD (coronary artery disease) I25.10 HTN (hypertension) I10 PAD (peripheral artery disease) I73.9 Gastrointestinal tube in situ Z93.[address] Z93.0 Carotid disease, bilateral I77.9 Smoker F17.200 Laryngeal cancer C32.9
[2023-09-14 07:48] VITALS: BP 148/80; PULSE 50; O2SAT 99; BMI 21.7
== END 2023-09-14 08:41 | disposition home or self-care (01) ==
PROVIDERS: PCP Internal Medicine; Visit Provider Internal Medicine
DX: I73.9 Peripheral vascular disease, unspecified (principal); Z93.1 Gastrostomy status; Z93.0 Tracheostomy status; I77.9 Disorder of arteries and arterioles, unspecified; I25.10 Atherosclerotic heart disease of native coronary artery without angina pectoris; I10 Essential (primary) hypertension; F17.200 Nicotine dependence, unspecified, uncomplicated; C32.9 Malignant neoplasm of larynx, unspecified
CPT/HCPCS: 99214

== ENCOUNTER 2023-10-22 14:30 | Outpatient (AMB) | payer MEDICARE, SELFPAY ==
[2023-10-22 14:30] VITALS: BP 100/68; PULSE 55; BMI 22.9
--- NOTE | 2023-10-22 14:30 | MHC.OFFVIS ---
Vital Signs 10/22/23 14:30 Height 5 ft 1 in Weight 121 lb 4.068 oz BMI 22.9 BP 100/68 Blood Pressure Location Lt brachial Position Sitting Pulse 55 Intake Visit Reasons: Over Due 1 year F/U Intake Note: Overdue 1 year follow-up with ekg feeling good Marketing Director Assisted Living Required: No Dispute Resolution Specialist: Dispute Resolution Specialist Present Accompanied by: Daughter Allergies ranitidine [From Zantac] Allergy (Unknown, Verified 09/14/23 07:44) Rash lisip Adverse Reaction (Intermediate, Uncoded 09/14/23 08:32) Cough Medication List - Last Reconciled 10/22/23 by Leoncio Tariq MD amlodipine 2.5 mg PO DAILY aspirin (Ecotrin Low Strength) 81 mg PO DAILY ezetimibe 10 mg PO DAILY metoprolol tartrate 25 mg PO BID nitroglycerin 0.1 mg/hr (Nitro-Dur) 1 patch transdermal DAILY rosuvastatin 40 mg PO DAILY HPI Comments Details: Katlyn comes for follow-up. She underwent tracheostomy and a PEG tube placement in [facility]. Since the PEG tube placement she is eating better. She says also her breathing is better. She has been gaining some weight. She is able to not we would normal food but still supplements with some G-tube feet. She denies any cardiac symptoms. While in the hospital she had significantly elevated blood pressure. She was started on amlodipine therapy 2.5 mg. She has not had any chest pain. Denies any claudication. No lightheadedness, syncope. No prolonged palpitation irregular heartbeat. Her blood pressure today is slightly on the lower side consistent with labile blood pressure and blood pressure probably related to diffuse atherosclerotic disease. Renal artery stenosis is possible. [facility] Medical History S/P angiogram of extremity (~04/12/22) PVD (peripheral vascular disease) HTN (hypertension) Carotid disease, bilateral CAD (coronary artery disease) Cough Smoker Bronchitis Smoker Surgical History H/O carotid endarterectomy History of cardiac cath Social History Housing: House Patient Tobacco Use Status: Former Tobacco user Cigarettes Per Day: 5 e-Cigarette/Vaping Use: Never Used Advance Directives Date on File: 03/24/20 service: No Current occupational status: disabled Cognitive needs: No Hearing needs: No Vision needs: Yes Review of Systems Const Denies chills, Denies fatigue, Denies fever(s), Denies frequent falls, Denies weakness, Denies weight gain and Denies weight loss ENT Denies dizziness Card Denies chest pain, Denies leg edema, Denies lightheadedness, Denies palpitations, Denies dyspnea, Denies dyspnea on exertion, Denies orthopnea and Denies other (loss of consciousness) Resp Denies cough, Denies dyspnea and Denies dyspnea on exertion GI Denies hematochezia and Denies change in stool character Musc Denies abnormal gait, Denies muscle weakness, Denies numbness, Denies radiating pain into limb and Denies tingling Neuro Denies abnormal gait, Denies dizziness, Denies frequent falls, Denies numbness, Denies tingling and Denies weakness Endo Denies fatigue and Denies palpitations Physical Exam Vital Signs: Last Vital Signs Pulse 55 10/22/23 14:30 BP 100/68 10/22/23 14:30 BMI result Body Mass Index 22.9 Const General: cooperative, comfortable, no acute distress, alert, awake and tired appearing Nutritional Appearance: underweight Orientation/consciousness: patient oriented x3 Limitations: no limitations Neck Neck: Yes trachea midline, Yes supple, Yes no JVD and Yes other (Tracheostomy tube in place) Resp Effort & Inspection: normal respiratory effort Auscultation: clear to auscultation bilaterally and diminished lung sounds Cardio Jugular venous distension: no JVD Palpation: normal PMI Rate: regular rate Rhythm: regular rhythm Heart sounds: S1 normal heart sound present and S2 normal heart sound present Skin General skin exam: no rashes or lesions noted Neuro General: patient oriented x3 and no focal motor deficits Extrem General: Yes no clubbing, cyanosis or edema Office Procedures EKG Details: EKG shows normal sinus rhythm with right bundle-branch block with Q-waves in inferior leads [id number], Complete Assessment & Plan Assessment & Plan (1) CAD (coronary artery disease): 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 Code(s): I25.10 - Atherosclerotic heart disease of [place] coronary artery without angina pectoris Category: Medical Plan: CAD with prior coronary disease currently without any symptoms of angina on dual antianginal therapy. Actually recently amlodipine was added at the antihypertensive. Continue low-dose aspirin therapy. Continue high-intensity statin therapy. Target goal LDL less than 60 mg/dL. Blood pressure on today's exam is well optimized. See below. Smoking cessation was discussed again. (2) HTN (hypertension): Code(s): I10 - Essential (primary) hypertension Category: Medical Plan: Labile blood pressure which is not unusual in patients with diffuse atherosclerotic disease. Advised to maintain adequate hydration. Advised to monitor blood pressure at home maintain a log. Advised to stagger medications take amlodipine at noon to 14:00 time. Continue metoprolol. Low-salt diet was discussed. If she continues to have significant labile blood pressure issues consider renal duplex to evaluate for renal artery stenosis. Will follow up in the clinic in 1 year's time, sooner p.r.n.. Thank you for allowing me to partake in the care Medications: New aspirin (Ecotrin Low Strength) 81 mg PO DAILY 30 tabs 5RF Coding Level of Care Code Est Pt Level 4 (29913) Diagnoses CAD (coronary artery disease) I25.10 HTN (hypertension) I10 CPT Codes EKG - CPT: 21503-[id number], Complete ([id number])
== END 2023-10-22 16:01 | disposition home or self-care (01) ==
PROVIDERS: PCP Internal Medicine; Visit Provider Internal Medicine Cardiovascular Disease
DX: I25.10 Atherosclerotic heart disease of native coronary artery without angina pectoris (principal); I10 Essential (primary) hypertension
CPT/HCPCS: 93010; 99214

== ENCOUNTER → 2023-10-22 14:30 | Outpatient (BNVA) | payer MEDICARE, SELFPAY | PROVIDERS: PCP Internal Medicine; Visit Provider Internal Medicine Cardiovascular Disease | DX: I25.10 Atherosclerotic heart disease of native coronary artery without angina pectoris (principal); I10 Essential (primary) hypertension | CPT/HCPCS: 93005; 99212 ==

== ENCOUNTER 2024-01-17 10:07 | Outpatient (REF) | payer MEDICARE, SELFPAY ==
[2024-01-17 13:12] LABS: MANUAL DIFF FLAG NO
[2024-01-17 13:28] LABS: Basophils Percent Auto 0.8 % (0-2); Eosinophils Absolute Auto 0.2 X10*3/uL (0.0-0.4); Eosinophils Percent Auto 3.3 % (0-4); Hemoglobin 11.3 g/dl (12.0-16.0); Imm Gran Abs Auto 0.01 X10*3/uL (0.00-0.03); Imm Gran Pct Auto 0.2 % (0.0-0.4); Lymphocytes Absolute Auto 0.6 X10*3/uL (1.2-4.9); Lymphocytes Percent Auto 11.2 % (20-40); Mean Corpuscular HGB Conc 32.3 g/dl (31.0-35.0); Mean Corpuscular Hemoglobin 31.7 pg (27.0-33.0); Mean Platelet Volume 9.8 fL (9.4-12.3); Monocytes Absolute Auto 0.5 X10*3/uL (0.1-1.2); Monocytes Percent Auto 9.3 % (2-11); Neutrophils Absolute Auto 3.8 x10*3/uL (2.0-8.3); Neutrophils Percent Auto 75.2 % (45-73); Platelet Count 241 X10*3/uL (160-400); Red Blood Count 3.57 X10*6/uL (4.20-5.50); Red Cell Distribution Width 12.8 % (11.0-16.0); White Blood Count 5.1 X10*3/uL (4.8-10.8)
[2024-01-17 13:50] LABS: Alanine Aminotransferase 32 U/L (0-31); Albumin Level 4.1 g/dL (3.5-5.0); Alkaline Phosphatase 54 U/L (39-117); Anion Gap 12 (12-20); Aspartate Amino Transferase 33 U/L (5-31); Bilirubin Total 0.4 mg/dL (0.0-1.0); Blood Urea Nitrogen 20 mg/dL (9-16); Calcium 9.6 mg/dL (8.4-10.2); Carbon Dioxide 29 mmol/L (22-29); Chloride 103 mmol/L (96-108); Cholesterol 127 mg/dL (<200); Estimated Glomerular Filt Rate 55; Glucose Fasting 91 mg/dL (60-99); HDL Cholesterol 62 mg/dL (>40); LDL Cholesterol Calculated 44 mg/dL (<100); Potassium 4.9 mmol/L (3.3-5.1); Sodium 139 mmol/L (135-145); Total Protein 7.4 g/dL (6.5-8.0); Triglycerides 107 mg/dL (<150)
[2024-01-17 14:09] LABS: TSH reflex Free T4 93.54 uIU/mL (0.32-4.0)
[2024-01-17 14:54] LABS: Free T4 (Free Thyroxine) < 0.42 ng/dL (0.71-1.85)
== END 2024-01-17 10:08 | disposition home or self-care (01) ==
LOC: HO.HMGCLDS 10:07
PROVIDERS: PCP Internal Medicine; Visit Provider Internal Medicine
DX: I10 Essential (primary) hypertension (principal); I25.10 Atherosclerotic heart disease of native coronary artery without angina pectoris; I73.9 Peripheral vascular disease, unspecified
CPT/HCPCS: 36415; 80053; 80061; 84439; 84443; 85025

== ENCOUNTER 2024-01-22 12:33 | Outpatient (AMB) | payer MEDICARE, SELFPAY ==
[2024-01-22 12:34] VITALS: BP 134/74; PULSE 62; O2SAT 97; BMI 24.9
--- NOTE | 2024-01-22 12:34 | A.OFFPC_ITS ---
Vital Signs 01/22/24 12:34 Height 5 ft 1 in Weight 132 lb BMI 24.9 BP 134/74 Blood Pressure Location Rt brachial Position Sitting Pulse 62 Pulse Source Pulse Oximeter Pulse Oximetry (%) 97 Oxygen Delivery Method Room Air Intake Visit Reasons: 3M F/U Intake Note: Pt is here today for 3 months follow up visit. Allergies ranitidine [From Zantac] Allergy (Unknown, Verified 01/22/24 12:37) Rash lisip Adverse Reaction (Intermediate, Uncoded 01/22/24 12:37) Cough Medication List - Last Reconciled 01/22/24 by Meron Gil MD amlodipine 2.5 mg PO DAILY aspirin (Ecotrin Low Strength) 81 mg PO DAILY ezetimibe 10 mg PO DAILY levothyroxine 75 mcg PO DAILY metoprolol tartrate 25 mg PO BID nitroglycerin 0.1 mg/hr (Nitro-Dur) 1 patch transdermal DAILY rosuvastatin 40 mg PO DAILY Tobacco use date assessed: 01/22/24 Fall risk assessment: 2 + Falls in past year Last assessed Fall Risk: 01/22/24 Dental Screening Dental Screen Date: 09/14/23 HPI 3M F/U HPI Details Patient presents for the follow-up on hypertension hyperlipidemia stable on current medications. Patient used to take levothyroxine which she did not refill a few months ago and was not able to restart because of PCP change. Patient reports both feet swelling worse at the end of the day. She sleeps in a recliner due to on tracheostomy. Patient denies shortness or breath PND or orthopnea, PFSH Medical History S/P angiogram of extremity (~04/12/22) PVD (peripheral vascular disease) HTN (hypertension) Carotid disease, bilateral CAD (coronary artery disease) Smoker Surgical History H/O carotid endarterectomy History of cardiac cath Social History Housing: House Patient Tobacco Use Status: Former Tobacco user Cigarettes Per Day: 5 e-Cigarette/Vaping Use: Never Used Advance Directives Date on File: 03/24/20 service: No Current occupational status: disabled Cognitive needs: No Hearing needs: No Vision needs: Yes Questionnaire PHQ-9 Over the last 2 weeks, how often have you been bothered by any of the following problems? 1. Little interest or pleasure in doing things: not at all 2. Feeling down, depressed, or hopeless: not at all 3. Trouble falling or staying asleep, or sleeping too much: not at all 4. Feeling tired or having little energy: not at all 5. Poor appetite or overeating: not at all 6. Feeling bad about yourself - or that you are a failure or have let yourself or your family down: not at all 7. Trouble concentrating on things, such as reading the newspaper or watching television: not at all 8. Moving or speaking so slowly that other people could have noticed. Or the opposite - being so fidgety or restless that you have been moving around a lot more than usual: not at all 9. Thoughts that you would be better off or of hurting yourself in some way: not at all Total score: 0 Depression Screening Interpretation: Negative Depression Screening Done: Yes 79482 - PHQ-9 Billing: Yes Source: Developed by Drs. Shiv Hammer, Jeannie Gerardo, Hebert Catalan and colleagues, with an educational nelson from [employer]. Thrive Questionnaire Date Thrive assessed: 01/22/24 I am a: Patient What is your living situation today?: I have a steady place to live Within the past 12 months, did the food you bought not last and you didn't have the money to get more?: Never true Within the past 12 months, did you worry whether your food would run out before you got money to buy more?: Never true Do you have trouble paying for medicines?: No Do you have trouble getting transportation to medical appointments?: No Do you have trouble paying your heating and electricity bill?: No Do you have trouble taking care of your child, family member or friend?: No Do you have trouble with day-to-day activities such as bathing, preparing meals, shopping, managing finances, etc.?: No Are you currently unemployed and looking for a job?: No Are you interested in more education?: No Please select the resources that you would like help with: None Currently or been in a relationship where the following occur: No concerns reported THRIVE Score: 0 AUDIT C Alcohol Use Questionnaire (AUDIT-C) 1. How often do you have a drink containing alcohol?: Never 3. How often do you have six or more drinks on one occasion?: Never Total Score: 0 ARIELLE-7 AMB Questionnaire ARIELLE-7 Date ARIELLE - 7 assessed: 01/22/24 Feeling nervous, anxious, or on edge: 0 = Not at all Not being able to stop or control worryin = Not at all Worrying too much about different things: 1 = Several days Trouble relaxin = Not at all Being so restless that it is hard to sit still: 0 = Not at all Becoming easily annoyed or irritable: 0 = Not at all Feeling afraid as if something awful might happen: 0 = Not at all Total ARIELLE-7 score (0-4 normal; 5-9 mild; 10-14 moderate; 15-21 severe): 1 Source: Developed by Drs. Shiv Hammer, Jeannie Gerardo, Hebert Catalan and colleagues, with an educational nelson from [employer]. ARIELLE-7 Assessment Billing ARIELLE-7 Assessment Tool: ARIELLE-7 Assessment 55305 Review of Systems Const All systems reviewed & are unremarkable except as noted in HPI and below Eyes Reports no additional complaints Card Reports no additional complaints GI Reports no additional complaints Reports no additional complaints Physical exam (Primary Care) Vital Signs: Last Vital Signs Pulse 62 01/22/24 12:34 BP 134/74 01/22/24 12:34 Pulse Ox 97 01/22/24 12:34 Oxygen Delivery Method Room Air 01/22/24 12:34 BMI result Body Mass Index 24.9 Tobacco/Smoking Status: Tobacco use Status Tobacco use date assessed 01/22/24 01/22/24 12:38 Patient Tobacco Use Status Former Tobacco user 01/22/24 12:38 e-Cigarette/Vaping Use Never Used 01/22/24 12:38 PHQ-9: PHQ-9 Score PHQ-9: Total score 0 01/22/24 12:40 Depression Screening Interpretation: Negative Thrive Assessment: Date of Thrive Assessment Date Thrive assessed 01/22/24 01/22/24 12:40 Currently or been in a relationship where the following occur: No concerns reported Const General: no acute distress HENMT Mouth: Normal oral and palatal mucosa present Resp Effort & Inspection: normal respiratory effort Auscultation: crackles Cardio Rhythm: regular rhythm Heart sounds: S1 normal heart sound present and S2 normal heart sound present GI Inspection: Yes normal to inspection Palpation (GI): Soft to palpation Extrem Other: Trace pitting edema on both feet Assessment and Plan Assessment & Plan (1) Tracheostomy in place: Comment: [facility] 09/01 [facility], F/U ENT in [place] Code(s): Z93.0 - Tracheostomy status Plan: Follow-up with ENT (2) HTN (hypertension): Code(s): I10 - Essential (primary) hypertension Plan: CONTINUE CURRENT MEDICATIONS (3) Carotid disease, bilateral: Comment: 07/17/2017 - right carotid endarterectomy Code(s): I77.9 - Disorder of arteries and arterioles, unspecified Plan: Continue high dose of statin (4) CAD (coronary artery disease): 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 Code(s): I25.10 - Atherosclerotic heart disease of [place] coronary artery without angina pectoris Plan: Continue current medications (5) Hypothyroid: Code(s): E03.9 - Hypothyroidism, unspecified Plan: Patient will restart levothyroxine at 75 mcg daily check TSH in 6 weeks and adjust accordingly. Follow-up in 3 months with a fasting labs before Orders: Orders TSH reflex Free T4 6 Weeks E03.9 - Hypothyroidism, unspecified, I10 - Essential (primary) hypertension, I73.9 - Peripheral vascular disease, unspecified TSH reflex Free T4 3 Months E03.9 - Hypothyroidism, unspecified, I10 - Essential (primary) hypertension, I73.9 - Peripheral vascular disease, unspecified Comprehensive [place]. Panel Fast 3 Months E03.9 - Hypothyroidism, unspecified, I10 - Essential (primary) hypertension, I73.9 - Peripheral vascular disease, unspecified Complete Blood Count Auto Diff 3 Months E03.9 - Hypothyroidism, unspecified, I10 - Essential (primary) hypertension, I73.9 - Peripheral vascular disease, unspecified Medications: New levothyroxine 75 mcg PO DAILY 60 tabs 0RF Coding Level of Care Code Est Pt Level 4 (37757) Diagnoses Tracheostomy in place Z93.0 HTN (hypertension) I10 Carotid disease, bilateral I77.9 CAD (coronary artery disease) I25.10 Hypothyroid E03.9 Additional Codes ARIELLE-7 Assessment Billing - ARIELLE-7 Assessment Tool: ARIELLE-7 Assessment 10710 ([id number])
== END 2024-01-22 12:58 | disposition home or self-care (01) ==
PROVIDERS: PCP Internal Medicine; Visit Provider Internal Medicine
DX: I10 Essential (primary) hypertension (principal); Z93.0 Tracheostomy status; I77.9 Disorder of arteries and arterioles, unspecified; I25.10 Atherosclerotic heart disease of native coronary artery without angina pectoris; E03.9 Hypothyroidism, unspecified
CPT/HCPCS: 99214

== ENCOUNTER 2024-04-03 13:45 | Outpatient (REF) | payer MEDICARE, SELFPAY ==
[2024-04-03 17:07] LABS: TSH reflex Free T4 73.39 uIU/mL (0.32-4.0)
[2024-04-03 18:39] LABS: Free T4 (Free Thyroxine) 0.46 ng/dL (0.71-1.85)
== END 2024-04-03 13:46 | disposition home or self-care (01) ==
LOC: HO.HMGCLDS 13:45
PROVIDERS: PCP Internal Medicine; Visit Provider Internal Medicine
DX: E03.9 Hypothyroidism, unspecified (principal); I10 Essential (primary) hypertension; I73.9 Peripheral vascular disease, unspecified
CPT/HCPCS: 36415; 84439; 84443

== ENCOUNTER 2024-04-28 07:13 | Outpatient (REF) | payer MEDICARE, SELFPAY ==
[2024-04-28 10:02] LABS: MANUAL DIFF FLAG NO
[2024-04-28 10:26] LABS: Eosinophils Absolute Auto 0.2 X10*3/uL (0.0-0.4); Eosinophils Percent Auto 5.4 % (0-4); Hematocrit 34.6 % (37.0-47.0); Hemoglobin 11.1 g/dl (12.0-16.0); Imm Gran Abs Auto 0.02 X10*3/uL (0.00-0.03); Imm Gran Pct Auto 0.5 % (0.0-0.4); Lymphocytes Absolute Auto 0.6 X10*3/uL (1.2-4.9); Lymphocytes Percent Auto 14.2 % (20-40); Mean Corpuscular HGB Conc 32.1 g/dl (31.0-35.0); Mean Corpuscular Hemoglobin 30.5 pg (27.0-33.0); Mean Corpuscular Volume 95.1 fL (80.0-98.0); Mean Platelet Volume 10.3 fL (9.4-12.3); Monocytes Absolute Auto 0.4 X10*3/uL (0.1-1.2); Monocytes Percent Auto 11.1 % (2-11); Neutrophils Absolute Auto 2.6 x10*3/uL (2.0-8.3); Neutrophils Percent Auto 67.8 % (45-73); Platelet Count 251 X10*3/uL (160-400); Red Blood Count 3.64 X10*6/uL (4.20-5.50); Red Cell Distribution Width 12.8 % (11.0-16.0); White Blood Count 3.9 X10*3/uL (4.8-10.8)
[2024-04-28 10:48] LABS: Alanine Aminotransferase 13 U/L (0-31); Alkaline Phosphatase 55 U/L (39-117); Anion Gap 12 (12-20); Aspartate Amino Transferase 27 U/L (5-31); Bilirubin Total 0.2 mg/dL (0.0-1.0); Blood Urea Nitrogen 20 mg/dL (9-16); Calcium 9.1 mg/dL (8.4-10.2); Carbon Dioxide 27 mmol/L (22-29); Chloride 105 mmol/L (96-108); Estimated Glomerular Filt Rate 55; Glucose Fasting 96 mg/dL (60-99); Potassium 4.8 mmol/L (3.3-5.1); Sodium 139 mmol/L (135-145); TSH reflex Free T4 28.97 uIU/mL (0.32-4.0); Total Protein 7.1 g/dL (6.5-8.0)
[2024-04-28 11:55] LABS: Free T4 (Free Thyroxine) 0.79 ng/dL (0.71-1.85)
== END 2024-04-28 07:14 | disposition home or self-care (01) ==
LOC: HO.HMGCLDS 07:13
PROVIDERS: PCP Internal Medicine; Visit Provider Internal Medicine
DX: E03.9 Hypothyroidism, unspecified (principal); I10 Essential (primary) hypertension; I73.9 Peripheral vascular disease, unspecified
CPT/HCPCS: 36415; 80053; 84439; 84443; 85025

== ENCOUNTER 2024-04-29 12:42 | Outpatient (REF) | payer MEDICARE, SELFPAY ==
[2024-04-29 17:09] LABS: Iron 61 mcg/dL (30-160); Percent Iron Saturation 24 % (15-50); Total Iron Binding Capacity 259 mcg/dL (228-428); Unsaturated Iron Binding 198 ug/dL
[2024-04-29 17:44] LABS: Folate 5.9 ng/mL (> or = 4.0); Vitamin B12 364 pg/mL (200-900)
[2024-04-30 22:48] LABS: IgA 336 mg/dL (70-320); IgG 1263 mg/dL (600-1540); IgM 149 mg/dL (50-300)
== END 2024-04-29 12:43 | disposition home or self-care (01) ==
LOC: HO.HMGCLDS 12:42
PROVIDERS: PCP Internal Medicine; Visit Provider Internal Medicine
DX: E03.9 Hypothyroidism, unspecified (principal); D64.9 Anemia, unspecified
CPT/HCPCS: 36415; 82607; 82746; 82784; 83540; 86334; 99212

== ENCOUNTER 2024-04-29 12:42 | Outpatient (AMB) | payer MEDICARE, SELFPAY ==
--- NOTE | 2024-04-29 13:14 | A.OFFPC_ITS ---
Vital Signs 04/29/24 13:18 Height 5 ft 1 in Weight 130 lb BMI 24.6 BP 130/80 Blood Pressure Location Rt brachial Position Sitting Pulse 74 Pulse Source Pulse Oximeter Pulse Oximetry (%) 95 Intake Visit Reasons: 3 months Intake Note: pt is here for 3 month follow up Allergies ranitidine [From Zantac] Allergy (Unknown, Verified 01/22/24 12:37) Rash lisip Adverse Reaction (Intermediate, Uncoded 01/22/24 12:37) Cough Medication List - Last Reconciled 04/29/24 by Meron Gil MD amlodipine 2.5 mg PO DAILY aspirin (Ecotrin Low Strength) 81 mg PO DAILY ezetimibe 10 mg PO DAILY levothyroxine 75 mcg PO DAILY metoprolol tartrate 25 mg PO BID nitroglycerin 0.1 mg/hr (Nitro-Dur) 1 patch transdermal DAILY rosuvastatin 40 mg PO DAILY Tobacco use date assessed: 01/22/24 Fall risk assessment: No Falls in past year Last assessed Fall Risk: 04/29/24 Dental Screening Dental Screen Date: 09/14/23 HPI 3 months HPI Details Patient presents for the follow-up on hypertension hyperlipidemia hypothyroidism. [facility]LY [facility], [facility] Medical History S/P angiogram of extremity (~04/12/22) PVD (peripheral vascular disease) HTN (hypertension) Carotid disease, bilateral CAD (coronary artery disease) Smoker Surgical History H/O carotid endarterectomy History of cardiac cath Social History Housing: House Patient Tobacco Use Status: Former Tobacco user Cigarettes Per Day: 5 e-Cigarette/Vaping Use: Never Used Advance Directives Date on File: 03/24/20 service: No Current occupational status: disabled Cognitive needs: No Hearing needs: No Vision needs: Yes Questionnaire Thrive Questionnaire Date Thrive assessed: 01/22/24 I am a: Patient What is your living situation today?: I have a steady place to live Within the past 12 months, did the food you bought not last and you didn't have the money to get more?: Never true Within the past 12 months, did you worry whether your food would run out before you got money to buy more?: Never true Do you have trouble paying for medicines?: No Do you have trouble getting transportation to medical appointments?: No Do you have trouble paying your heating and electricity bill?: No Do you have trouble taking care of your child, family member or friend?: No Do you have trouble with day-to-day activities such as bathing, preparing meals, shopping, managing finances, etc.?: No Are you currently unemployed and looking for a job?: No Are you interested in more education?: No Please select the resources that you would like help with: None Currently or been in a relationship where the following occur: No concerns reported THRIVE Score: 0 ARIELLE-7 AMB Questionnaire ARIELLE-7 Date ARIELLE - 7 assessed: 01/22/24 Source: Developed by Drs. Shiv Hammer, Jeannie Gerardo, Hebert Catalan and colleagues, with an educational nelson from [employer]. Review of Systems Const All systems reviewed & are unremarkable except as noted in HPI and below Eyes Reports no additional complaints Card Reports no additional complaints Resp Reports no additional complaints GI Reports no additional complaints Reports no additional complaints Physical exam (Primary Care) Vital Signs: Last Vital Signs Pulse 74 04/29/24 13:18 BP 148/80 H 04/29/24 13:18 Pulse Ox 95 04/29/24 13:18 BMI result Body Mass Index 24.6 Tobacco/Smoking Status: Tobacco use Status Tobacco use date assessed 01/22/24 04/29/24 13:14 Patient Tobacco Use Status Former Tobacco user 04/29/24 13:14 e-Cigarette/Vaping Use Never Used 04/29/24 13:14 Thrive Assessment: Date of Thrive Assessment Date Thrive assessed 01/22/24 04/29/24 13:14 Currently or been in a relationship where the following occur: No concerns reported Resp Effort & Inspection: normal respiratory effort Auscultation: diminished lung sounds Cardio Rhythm: regular rhythm Heart sounds: S1 normal heart sound present and S2 normal heart sound present GI Inspection: Yes normal to inspection Percussion: Yes normal to percussion Auscultation: normal bowel sounds Coding Level of Care Code Est Pt Level 4 (00973) Complex EM visit Add On G2211 Diagnoses Hypothyroid E03.9 Anemia D64.9 Laryngeal cancer C32.9 Gastrointestinal tube in situ Z93.[address] Z93.0 HTN (hypertension) I10 CAD (coronary artery disease) I25.10 Assessment & Plan Assessment & Plan (1) Hypothyroid: Code(s): E03.9 - Hypothyroidism, unspecified Category: Medical Plan: Patient has been taking 75 mcg of levothyroxine for the last month with improving TSH level. 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 Code(s): I25.10 - Atherosclerotic heart disease of [place] coronary artery without angina pectoris Category: Medical Plan: Medical management follow-up with the Cardiology Orders: Orders TSH reflex Free T4 1 Month D64.9 - Anemia, unspecified, E03.9 - Hypothyroidism, unspecified Complete Blood Count Auto Diff 1 Month D64.9 - Anemia, unspecified Lipid Panel 6 Months E03.9 - Hypothyroidism, unspecified, I10 - Essential (primary) hypertension, I73.9 - Peripheral vascular disease, unspecified Complete Blood Count Auto Diff 6 Months E03.9 - Hypothyroidism, unspecified, I10 - Essential (primary) hypertension, I73.9 - Peripheral vascular disease, unspecified TSH reflex Free T4 6 Months E03.9 - Hypothyroidism, unspecified, I10 - Essential (primary) hypertension, I73.9 - Peripheral vascular disease, unspecified IRON PROFILE Today D64.9 - Anemia, unspecified, E03.9 - Hypothyroidism, unspecified Vitamin B12 and Folate Today D64.9 - Anemia, unspecified, E03.9 - Hypothyroidism, unspecified Immunofixation Pnl, Serum Today D64.9 - Anemia, unspecified, E03.9 - Hypothyroidism, unspecified Comprehensive [place]. Panel Fast 6 Months E03.9 - Hypothyroidism, unspecified, I10 - Essential (primary) hypertension, I73.9 - Peripheral vascular disease, unspecified
[2024-04-29 13:18] VITALS: BP 130/80; PULSE 74; O2SAT 95; BMI 24.6
== END 2024-04-29 15:16 | disposition home or self-care (01) ==
PROVIDERS: PCP Internal Medicine; Visit Provider Internal Medicine
DX: E03.9 Hypothyroidism, unspecified (principal); C32.9 Malignant neoplasm of larynx, unspecified; Z93.1 Gastrostomy status; Z93.0 Tracheostomy status; D64.9 Anemia, unspecified; I10 Essential (primary) hypertension; I25.10 Atherosclerotic heart disease of native coronary artery without angina pectoris

== ENCOUNTER 2024-07-10 14:02 | Outpatient (REF) | payer MEDICARE, SELFPAY ==
[2024-07-10 16:09] LABS: MANUAL DIFF FLAG NO
[2024-07-10 16:14] LABS: Basophils Absolute Auto 0.1 X10*3/uL (0.0-0.2); Basophils Percent Auto 0.8 % (0-2); Eosinophils Absolute Auto 0.2 X10*3/uL (0.0-0.4); Eosinophils Percent Auto 3.3 % (0-4); Hematocrit 34.6 % (37.0-47.0); Hemoglobin 11.2 g/dl (12.0-16.0); Imm Gran Abs Auto 0.02 X10*3/uL (0.00-0.03); Imm Gran Pct Auto 0.3 % (0.0-0.4); Lymphocytes Absolute Auto 0.9 X10*3/uL (1.2-4.9); Lymphocytes Percent Auto 15.1 % (20-40); Mean Corpuscular HGB Conc 32.4 g/dl (31.0-35.0); Mean Corpuscular Hemoglobin 29.4 pg (27.0-33.0); Mean Corpuscular Volume 90.8 fL (80.0-98.0); Mean Platelet Volume 9.7 fL (9.4-12.3); Monocytes Absolute Auto 0.5 X10*3/uL (0.1-1.2); Monocytes Percent Auto 7.7 % (2-11); Neutrophils Absolute Auto 4.4 x10*3/uL (2.0-8.3); Neutrophils Percent Auto 72.8 % (45-73); Platelet Count 314 X10*3/uL (160-400); Red Blood Count 3.81 X10*6/uL (4.20-5.50); Red Cell Distribution Width 13.8 % (11.0-16.0); White Blood Count 6.1 X10*3/uL (4.8-10.8)
[2024-07-10 16:45] LABS: TSH reflex Free T4 70.92 uIU/mL (0.32-4.0)
--- OUTSIDE RECORDS SUMMARY | 2024-07-10 17:54 | XMS_ITS | Clinical Summary ---
Author Organization Formerly [facility] Address [address] [place] [address] Care Team Providers Care Zipper Setter Name Role Phone Meron Gil MD Primary Care Provider [phone] Allergies Active Allergy Reactions Criticality Noted Date Comments Ranitidine Rash/Dermatitis Low 08/16/2023 Medications Medication Sig Dispensed Refills Start Date End Date Status nitroglycerin (NITRODUR) 0.1 mg/hr Place 1 patch on the skin daily. 07/17/2023 Active metoPROLOL TARTRATE (LOPRESSOR) 25 MG tabletIndications:D yspnea, unspecified type 1 tablet (25 mg total) by G Tube route 2 times a day. 60 tablet 08/27/2023 Active rosuvastatin (CRESTOR) 40 MG tabletIndications:D yspnea, unspecified type 1 tablet (40 mg total) by G Tube route daily. 30 tablet 08/28/2023 Active ezetimibe (ZeTIA) 10 MG tabletIndications:D yspnea, unspecified type 1 tablet (10 mg total) by G Tube route daily. 30 tablet 08/28/2023 Active aspirin 81 MG chewable tabletIndications:D ifficult airway for intubation, sequela 1 tablet (81 mg total) by G Tube route daily. 30 tablet 08/28/2023 Active acetaminophen (TYLENOL) 160 mg/5 mL solutionIndications :Difficult airway for intubation, sequela 20.3125 mL (650 mg total) by G Tube route 4 times daily (every 6 hours) as needed for mild pain. 120 mL 08/27/2023 Active thiamine mononitrate (VITAMIN B-1) 100 MG tabletIndications:D ifficult airway for intubation, subsequent encounter 1 tablet (100 mg total) by Feeding Tube route daily. 30 tablet 08/28/2023 Active oxyCODONE (ROXICODONE) 5 mg/5 mL solutionIndications :Difficult airway for intubation, sequela 5 mL (5 mg total) by G Tube route 4 times daily (every 6 hours) as needed for severe pain. Max Daily Amount: 20 mg 15 mL 08/27/2023 Active multivitamin with minerals (CEROVITE) Liquid liquidIndications:D ifficult airway for intubation, subsequent encounter 15 mL by Feeding Tube route daily. 450 mL 08/28/2023 Active amLODIPine (NORVASC) 2.5 MG tablet Take 2.5 mg by mouth. Active levothyroxine (SYNTHROID, LEVOTHROID) 75 MCG tablet Take 75 mcg by mouth. 04/04/2024 Active ezetimibe (ZeTIA) 10 MG tablet 0 Refills, Maintenance, 11/14/23 15:58:00 EDT, Partial fill upon patient request if the prescription is for a schedule II opioid drug. 11/14/2023 Active Active Problems Problem Noted Date Diagnosed Date HTN (hypertension) 08/26/2023 Severe malnutrition (HCC): m uscle mass loss of temporalis and quadriceps and body fat loss of tricep/bicep, buccal and orbital fat pads 08/21/2023 Difficult airway 08/17/2023 Overview (08/17/2023): 73yoF with laryngeal cancer s/p radiation with neck soft tissue contractures. Awake Glidescope look- Grade 1 view with narrow glottis with hypertrophied aryepiglottic structures. Intubated successfully with 6mm ETT using combined glidescope and flexible bronchoscope. Subsequently underwent Tracheostomy. Dyspnea 08/16/2023 Dysphagia 08/16/2023 Resolved Problems Problem Noted Date Diagnosed Date Resolved Date Influenza A 08/27/2023 10/01/2023 Pneumonia 08/27/2023 10/01/2023 Encounters Date Type Department Care Team Description 07/02/2024 1:15 PM EST Office Visit [facility] [address], [address] [place] [address] Sergio Tinajero MD Dysphonia (Primary Dx); Edema of larynx; Laryngeal cancer (HCC); History of cancer of larynx 05/12/2024 Orders Only [facility] [place] [address] [place] [address] Sergio Tinajero MD Carcinoma of larynx (HCC) (Primary Dx); Edema of larynx 05/07/2024 12:45 PM EST Office Visit [facility] [address], [address] [place] [address] Sergio Tinajero MD Laryngeal cancer (HCC) (Primary Dx); Pre-operative laboratory examination; Dysphonia; Edema of larynx from Last 3 Months Social History Tobacco Use Types Packs/Day Years Used Date Smoking Tobacco: Former Cigarettes 0.5 66.1 S tarted: 1960 Smokeless Tobacco: Never Tobacco Cessation:Counseling Given: Not Answered Alcohol Use Standard Drinks/Week Comments Never 0 (1 standard drink = 0.6 oz pur e alcohol) [facility] [employer] Answer Date Recorded In the past [address], gas, oil, or water [employer] threatened to shut off services in your home? No 08/17/2023 AUDIT-C Answer Date Recorded Q1: How often do you have a drink containing alcohol? Never 08/16/2023 Q2: How many drinks containi ng alcohol do you have on a typical day when you are drinking? Patient does not drink Q3: How often do you have si x or more drinks on one occasion? Never 08/16/2023 Hunger Vital Sign Answer Date Recorded Within the past 12 months, y ou worried that your food would run out before you got the money to buy more. Never true 08/17/19 24 Within the past 12 months, t he food you bought just didn't last and you didn't have money to get more. Never true 08/17/2023 PRAPARE - Transportation Answer Date Re corded In the past 12 months, has l ack of transportation kept you from medical appointments or from getting medications? No 01/2024 In the past 12 months, has l ack of transportation kept you from meetings, work, or from getting things needed for daily living? No 08/17/2023 Housing Stability Vital Sign Answer Star e Recorded In the last 12 months, was t here a time when you were not able to pay the mortgage or rent on time? No 08/17/2023 In the last 12 months, how many places have you lived? 1 08/17/2023 In the last 12 months, was t here a time when you did not have a steady place to sleep or slept in a longterm (including now)? No 08/17/2023 Sex and Gender Information Value Date Recorded Sex Assigned at Female 08/16/2023 12:07 PM EST Gender Identity Female 08/16/2023 12:07 PM EST Sexual Orientation Heterosexual (straight) 08/15 12:07 PM EST Last Filed Vital Signs Vital Sign Reading Time Taken Comments Blood Pressure 152/68 08/27/2023 8:45 AM EDT Pulse 83 08/27/2023 8:45 AM EDT Temperature 37 ??C (98.6 ??F) 08/27/2023 8:45 AM EDT Respiratory Rate 20 08/27/2023 8:45 AM EDT Oxygen Saturation 95% 08/27/2023 8:45 AM EDT Inhaled Oxygen Concentration - - Weight 57.6 kg (127 lb) 07/02/2024 12:42 PM EST Height 154.9 cm (5' 1 ) 07/02/2024 12:42 PM EST Body Mass Index 24 07/02/2024 12:42 PM EST Plan of Treatment Upcoming Encounters Date Type Department Care Team (Late st Contact Info) Description 10/01/2024 1:15 PM EDT Office Visit [facility] [address], [address] [place] [address] Sergio Tinajero MD [address] [place], [place] [id number] Health Maintenance Due Date Last Done Comments Hepatitis C Virus Screening 1950 COVID-19 Vaccine (#1) 1953 DTaP/Tdap/Td Vaccines (1 - Tdap) 1967 Pneumococcal Vaccines 50+ (1 of 2 - PCV) 1967 Zoster (Shingles) Vaccine (1 of 2) 1967 DXA Bone Density (Females,Ag es 65 and older) 2013 RSV Vaccine 60 years and old er and Patients (1 - 1-dose 75+ series) 2023 Influenza Vaccine 01/10/2024 Hepatitis B Vaccines Aged Out No long er eligible based on patient's age to complete this topic Medical Devices Implanted Type Area Bulk Tank Driver Device Identifier Shelf Expiration Date Model / Serial / Lot [id number] Tube 16fr Lala Bls Feed Internal Rtnt Balloon Rcs Dist Tip - [id number] Implanted:Qty: 1 on 08/23/2023 by Invasive, Proceduralist[facility] at [facility] Tube N/A: Abdomen [employer] [id number] / / Advance Directives * Full Code (Latest Code Status on File) Date Activated Date Inactivated Comments 08/17/2023 7:40 AM * Full Code Date Activated Date Inactivated Comments 08/16/2023 1:44 PM 08/17/2023 7:40 AM Care Teams Zipper Setter Relationship Specialty Start Date End Date Meron Gil MD [address] [place] [address] PCP - General 08/16/23
--- OUTSIDE RECORDS SUMMARY | 2024-07-10 17:54 | XMS_ITS ---
Author Name [facility] Organization Unknown History of Medication Use Medication Directions Dispensed Refills Start Date End Date Stat us ezetimibe (ZeTIA) 10 MG tablet 1 tablet (10 mg total) by G Tube route daily. 08/28/2023 09/28/2023 active cefpodoxime (VANTIN) 200 MG tablet 1 tablet (200 mg total) by G Tube route 2 (two) times a day. 08/27/2023 09/01/2023 active ezetimibe (ZeTIA) 10 MG tablet 0 Refills, Maintenance, 11/14/23 15:58:00 EDT, Partial fill upon patient request if the prescription is for a schedule II opioid drug. 11/14/2023 active oxyCODONE (ROXICODONE) 5 mg/5 mL solution 5 mL (5 mg total) by G Tube route 4 times daily (every 6 hours) as needed for severe pain. Max Daily Amount: 20 mg 08/27/2023 08/31/2023 active metoPROLOL TARTRATE (LOPRESSOR) 25 MG tablet 1 tablet (25 mg total) by G Tube route 2 times a day. 08/27/2023 09/27/2023 active Problems Problem Status Onset Date Problem Type Date of Resoluti on Source Severe malnutrition active 2023-08-21 ProblemAct [facility] Dyspnea active 2023-08-16 ProblemAct [facility] Dysphagia active 2023-08-16 ProblemAct [facility] Dysphonia active EncounterDiagnosisAct [facility] Difficult airway active 2023-08-17 ProblemAct [facility] History of cancer of larynx active EncounterDiagnosisAct [facility] Laryngeal cancer (HCC) active EncounterDiagnosisAct [facility] HTN (hypertension) active 2023-08-26 ProblemAct [facility] Edema of larynx active EncounterDiagnosisAct [facility]
--- OUTSIDE RECORDS SUMMARY | 2024-07-10 17:54 | XMS_ITS | Encounter Summary ---
Author Organization [facility] Address [address] [place] [address] Care Team Providers Care Fruit Sprayer Name Role Phone Meron Gil MD Primary Care Provider [phone] Reason for Visit * Reason Comments Follow-up 2 mon f/u scc larynx Encounter Details Date Type Department Care Team (Late st Contact Info) Description 07/02/2024 1:15 PM EST Office Visit [facility] [address], [address] [place] [phone] Sergio Tinajero MD [address] [place] [address] Dysphonia (Primary Dx); Edema of larynx; Laryngeal cancer (HCC); History of cancer of larynx Social History Tobacco Use Types Packs/Day Years Used Date Smoking Tobacco: Former Cigarettes 0.5 66.1 S tarted: 1958 Smokeless Tobacco: Never Tobacco Cessation:Counseling Given: Not Answered Alcohol Use Standard Drinks/Week Comments Never 0 (1 standard drink = 0.6 oz pur e alcohol) [facility] Utilities Answer Date Recorded In the past 12 months has [employer], gas, oil, or water company threatened to shut off services in your [...] place to sleep or slept in a mcc (including now)? No 08/17/2023 Sex and Gender Information Value Date Recorded Sex Assigned at Female 08/16/2023 12:07 PM EST Gender Identity Female 08/16/2023 12:07 PM EST Sexual Orientation Heterosexual (straight) 08/15 12:07 PM EST documented as of this encounter Last Filed Vital Signs Vital Sign Reading Time Taken Comments Blood Pressure - - Pulse - - Temperature - - Respiratory Rate - - Oxygen Saturation - - Inhaled Oxygen Concentration - - Weight 57.6 kg (127 lb) 07/02/2024 12:42 PM EST Height 154.9 cm (5' 1 ) 07/02/2024 12:42 PM EST Body Mass Index 24 07/02/2024 12:42 PM EST documented in this encounter Progress Notes * Sergio Tinajero MD - 07/02/2024 1:15 PM EST Images from the original note were not included. [address] [place] [address], [address] [address] Loc: [phone] Encounter Date: 07/02/2024 Name: Bianca Swift : 1950 Head and Neck Surgical Oncology Follow Up ASSESSMENT/PLAN 74 y.o. 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 She is now 10 months status post tracheostomy due to progressively worsening dyspnea and laryngeal edema. A direct laryngoscopy with biopsies performed at that time did not identify evidence of recurrent cancer. She has a 6.0 uncuffed Portex tracheostomy tube in place. She tolerates a Passy- Kory valve. She intermittently tolerates tracheostomy tube capping trials but recently came down with a upper respiratory tract infection/ cold necessitating removing of the tracheostomy tube. She denies any worsening dysphagia or weight loss. On examination today, the tracheostomy tube is in good position. She tolerates a she has a Passy-Anna valve in place. I do not appreciate any cervical lymphadenopathy or neck masses. On fiberoptic laryngoscopy, there is some improvement in the supraglottic edema but there is extensive postradiation changes noted throughout the larynx. The true vocal cords have impaired abduction with some nodularchanges in the larynx. No obvious masses. She had a CT scan of the neck performed on 05/29/2024 which was performed at [facility] in [place]. The report describes no obvious masses within the larynx but the imaging quality/report waslimited due to motion artifact. Clinically, there is no evidence of local or regional disease recurrence. I have recommended continued close surveillance. She should continue with intermittent capping trials as tolerated At this time, I do not feel that it is safe/advisable to remove the tracheostomy tube Recommend continued surveillance. Follow-up appointment scheduled in 4 months. 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 She had a tracheostomy tube placed due to progressively worsening dyspnea and laryngeal edema. She reports trying to Her tracheostomy tube which shetolerated most days but felt more comfortable removing the In the evening. She recently came down wi th a upper respiratory tract infection which resulted in worsening dyspnea. She denies any worsening dysphagia. She denies any weight loss. She denies any throat pain. Treatment History 2020: Completion of concurrent chemoradiation therapy for treatment of T2 N2 squamous cell carcinoma of supraglottis ([facility]) 08/17/2023: Tracheostomy, direct microlaryngoscopy with biopsies of larynx negative for malignancy Physical examination General Appearance: Well nourished, NAD Voice: Strong, non-labored respirations, no stridor Nose: Patent nares, midline septum. No mucus/polyps/purulence on AR Oral Cavity: Mucosa moist and intact without lesions or masses. Mobile tongue. No trismus. Dentition in good condition. Oropharynx: No erythema, exudates or masses noted. Uvula midline. Neck: No lymphadenopathy, masses or tenderness on palpation. No thyromegaly. Midline larynx. Cranial Nerves: CN II-XII grossly intact without obvious deficit. MSK/Ext: JIN, adequate pulses Skin: Good color and turgor. Findings as above, except pertinent/abnormal findings noted here: Hoarse voice with Passy-Kory valve on trach 6.0 uncuffed Portex tracheostomy tube in place. Secured with Velcro trach straps No discrete cervical lymphadenopathy or neck masses No masses visualized in the oral cavity or pharynx. Procedures: Laryngoscopy Procedure: Fiberoptic laryngoscopy Indications: Flexible fiberoptic laryngoscopy was performed as patient was unable to tolerate mirror examination and the patient???s history and diagnoses of concern warranted mucosal exam. After explanation of the procedure and verbal consent from the patient, the nasal cavity was decongested and anesthetized in usual fashion. The scope was passed through the nasal cavity. The nasal cavity, nasopharynx, oropharynx, larynx, and hypopharynx were all examined. The vocal cords were examined in ventilatory and phonotory phases. The following findings are noted: Postradiation changes within the larynx. True vocal cords are partially obscured due to radiation changes involving the supraglottis. There is some persistent nodularity at the true vocal cord level.The vocal cords seem to have some impaired abduction. No obvious masses. The patient tolerated the procedure well without complications. Relevant Imaging/Pathology/Labs 05/29/2024: [facility] Exam is limited due to patient motion including motion of the mandible and laryngeal/pharyngeal motion. Within this limitation, there is generalized soft tissue thickening in the supraglottic and glottic soft tissues which most likely reflects posttreatment changes. No cervical adenopathy. Sergio Tinajero M.D ([place])., FACS Head and Neck Surgery & Microvascular Reconstructive [facility] Co-Director, Head and Neck Surgical Oncology Program, [facility] Anesthesiology Tech Clinical Professor, [employer] [facility] [employer] [facility] [employer] CC: Meron Gil MD, This note was created using voice recognition software. Please excuse any typographical errors or word substitutions. Consents/Instructions: I reviewed my findings with this patient and/or their family. We have discussed the diagnoses and recommended interventions. I have answered all of their questions to their apparent satisfaction. I have encouraged this patient to call me with any questions or concerns. MDM I spent a total of 30 minutes managing this patient with time inclusive of chart review, imaging review and interpretation, laboratory review and interpretation, direct patient interaction inclusive of history taking, review of systems and examination, and counseling/coordination of care; exclusiveof procedure time. This encounter required moderate medical decision making and the aggregate of this process is detailed in the plan and elsewhere in the clinical encounter note. documented in this encounter Plan of Treatment Upcoming Encounters Date Type Department Care Team (Late st Contact Info) Description 10/01/2024 1:15 PM EDT Office Visit [facility] [address], [address] [place] [phone] Sergio Tinajero MD [address] [place] [address] documented as of this encounter Visit Diagnoses Diagnosis Dysphonia- Primary Edema of larynx Laryngeal cancer (HCC) Malignant neoplasm of larynx, unspecified site History of cancer of larynx documented in this encounter Care Teams Fruit Sprayer Relationship Specialty Start Date End Date Meron Gil MD [address] [place] [address] PCP - General 08/16/23 documented as of this encounter
== END 2024-07-10 14:03 | disposition home or self-care (01) ==
LOC: HO.HMGCLDS 14:02
PROVIDERS: PCP Internal Medicine; Visit Provider Internal Medicine
DX: E03.9 Hypothyroidism, unspecified (principal); D64.9 Anemia, unspecified
CPT/HCPCS: 36415; 84439; 84443; 85025

== ENCOUNTER 2024-10-21 13:26 | Outpatient (AMB) | payer MEDICARE, SELFPAY ==
[2024-10-21 13:29] VITALS: BP 120/82; PULSE 63; BMI 24.2
--- NOTE | 2024-10-21 13:29 | MHC.OFFVIS ---
Vital Signs 10/21/24 13:29 Height 5 ft 1 in Weight 127 lb 13.89 oz BMI 24.2 BP 120/82 Blood Pressure Location Lt brachial Position Sitting Pulse 63 Intake Visit Reasons: 1 yr follow up Intake Note: 1 year follow-up with ekg feeling good Office Admin Required: No Social Welfare Research Worker: Social Welfare Research Worker Present Accompanied by: Daughter Allergies ranitidine [From Zantac] Allergy (Unknown, Verified 01/22/24 12:37) Rash lisip Adverse Reaction (Intermediate, Uncoded 01/22/24 12:37) Cough Medication List - Last Reconciled 10/21/24 by Leoncio Tariq MD amlodipine 2.5 mg PO DAILY aspirin (Ecotrin Low Strength) 81 mg PO DAILY ezetimibe 10 mg PO DAILY levothyroxine 100 mcg PO DAILY metoprolol tartrate 25 mg PO BID nitroglycerin 0.1 mg/hr (Nitro-Dur) 1 patch transdermal DAILY rosuvastatin 40 mg PO DAILY HPI Comments Details: Bianca comes for her annual follow-up visit for coronary artery disease. She has been doing okay from cardiac perspective. She has most complaints regarding her tracheostomy. She denies any exertional chest pain. She does have exertional shortness of breath related to her tracheostomy. Denies any orthopnea, PND, leg edema. No claudication symptoms. She takes all her medications. Last LDL was 44 mg/dL in January on current therapy [facility] Medical History S/P angiogram of extremity (~04/12/22) PVD (peripheral vascular disease) HTN (hypertension) Carotid disease, bilateral CAD (coronary artery disease) Smoker Surgical History H/O carotid endarterectomy History of cardiac cath Social History Housing: House Patient Tobacco Use Status: Former Tobacco user Cigarettes Per Day: 5 e-Cigarette/Vaping Use: Never Used Advance Directives Date on File: 03/24/20 service: No Current occupational status: disabled Cognitive needs: No Hearing needs: No Vision needs: Yes Review of Systems Const Denies chills, Denies fatigue, Denies fever(s), Denies frequent falls, Denies weakness, Denies weight gain and Denies weight loss ENT Denies dizziness Card Denies chest pain, Denies leg edema, Denies lightheadedness, Denies palpitations, Denies dyspnea, Denies dyspnea on exertion, Denies orthopnea and Denies other (loss of consciousness) Resp Denies cough, Denies dyspnea and Denies dyspnea on exertion GI Denies hematochezia and Denies change in stool character Musc Denies abnormal gait, Denies muscle weakness, Denies numbness, Denies radiating pain into limb and Denies tingling Neuro Denies abnormal gait, Denies dizziness, Denies frequent falls, Denies numbness, Denies tingling and Denies weakness Endo Denies fatigue and Denies palpitations Physical Exam Vital Signs: Last Vital Signs Pulse 63 10/21/24 13:29 BP 120/82 10/21/24 13:29 BMI result Body Mass Index 24.2 Const General: cooperative, comfortable, no acute distress, alert, awake and tired appearing Nutritional Appearance: underweight Orientation/consciousness: patient oriented x3 Limitations: no limitations Neck Neck: Yes trachea midline, Yes supple, Yes no JVD and Yes other (Tracheostomy tube in place) Resp Effort & Inspection: normal respiratory effort Auscultation: clear to auscultation bilaterally and diminished lung sounds Cardio Jugular venous distension: no JVD Palpation: normal PMI Rate: regular rate Rhythm: regular rhythm Heart sounds: S1 normal heart sound present and S2 normal heart sound present Skin General skin exam: no rashes or lesions noted Neuro General: patient oriented x3 and no focal motor deficits Extrem General: Yes no clubbing, cyanosis or edema Office Procedures EKG Details: EKG shows normal sinus rhythm with right bundle-branch block with nonspecific ST T wave changes. [id number], Complete Assessment & Plan Assessment & Plan (1) CAD (coronary artery disease): Comment: DIRECTOR OF GRADUATE ADMISSIONS of RCA with collaterals, medical management. Code(s): I25.10 - Atherosclerotic heart disease of [place] coronary artery without angina pectoris Category: Medical Plan: Coronary artery disease with known prior stable coronary disease with chronic total occlusion of the RCA with good collaterals. Currently not having any symptoms related to it. No further workup is indicated. Continue aggressive medical therapy. Lifelong aspirin therapy is advised. Continue current lipid modification with ezetimibe and high-intensity statin therapy. Annual lipid panel should be performed. Continue aggressive blood pressure control. (2) HTN (hypertension): Code(s): I10 - Essential (primary) hypertension Category: Medical Plan: Hypertension which is currently well optimized on amlodipine and metoprolol therapy. Continue the same. Continue monitor blood pressure at home maintain a log. Goal blood pressure less than 130/84. Low-salt diet was advised. Will follow up in the clinic in 1 year's time, sooner p.r.n.. Thank you for allowing me to partake in her care Coding Level of Care Code Est Pt Level 4 (96739) Complex EM visit Add On G2211 Diagnoses CAD (coronary artery disease) I25.10 HTN (hypertension) I10 CPT Codes EKG - CPT: 88351-[id number], Complete ([id number])
--- OUTSIDE RECORDS SUMMARY | 2024-10-21 14:32 | XMS_ITS ---
Author Organization [facility] Address [address] [place] [address] Care Team Providers Care Head Esthetician Name Role Phone Meron Gil MD Primary Care Provider Active Problems Problem Noted Date Diagnosed Date Laryngeal cancer 10/01/2024 HTN (hypertension) 08/26/2023 Severe malnutrition (HCC): m [...] Subsequently underwent Tracheostomy. Dyspnea 08/16/2023 Dysphagia 08/16/2023 Current Treatment and Therapy Plans No current plan information found. Past Treatment and Therapy Plans No past plan information found. Lifetime Dose Tracking * Chemical Lifetime Dose Automatic Entry Manual Entr y Air Kerma-mGy 13.4 mGy 0 mGy 13.4 mGy Dose Area Product(DAP)-micrograys-m2 210.15 microgray-m2 0 microgray-m2 210.15 microgray-m2 Dose Area Product(DAP)-cGy-cm2 91.41 cGy-cm2 91.41 cGy-cm2 0 cGy-cm2 Resolved Problems Problem Noted Date Diagnosed Date Resolved Date Influenza A 08/27/2023 10/01/2023 Pneumonia 08/27/2023 10/01/2023
--- OUTSIDE RECORDS SUMMARY | 2024-10-21 14:32 | XMS_ITS | Clinical Summary ---
Author Organization [facility] Address [address] [place] [address] Care Team Providers Care Safety Relief Valve Technician Name Role Phone Meron Gil MD Primary Care Provider [phone] Allergies Active Allergy Reactions Criticality Noted Date Comments Ranitidine Rash/Dermatitis Low 08/16/2023 Medications nitroglycerin (NITRODUR) 0.1 mg/hr Place 1 patch on the skin daily. 4 Active metoPROLOL TARTRATE (LOPRESSOR) 25 MG tabletIndicatio ns:Dyspnea, unspecified type 1 tablet (25 mg total) by G Tube route 2 times a day. 60 tablet 4 Active rosuvastatin (CRESTOR) 40 MG tabletIndicatio ns:Dyspnea, unspecified type 1 tablet (40 mg total) by G Tube route daily. 30 tablet 4 Active aspirin 81 MG chewable tabletIndicatio ns:Difficult airway for intubation, sequela 1 tablet (81 mg total) by G Tube route daily. 30 tablet 4 Active acetaminophen (TYLENOL) 160 mg/5 mL solutionIndicat ions:Difficult airway for intubation, sequela 20.3125 mL (650 mg total) by G Tube route 4 times daily (every 6 hours) as needed for mild pain. 120 mL 4 Active thiamine mononitrate (VITAMIN B-1) 100 MG tabletIndicatio ns:Difficult airway for intubation, subsequent encounter 1 tablet (100 mg total) by Feeding Tube route daily. 30 tablet 4 Active oxyCODONE (ROXICODONE) 5 mg/5 mL solutionIndicat ions:Difficult airway for intubation, sequela 5 mL (5 mg total) by G Tube route 4 times daily (every 6 hours) as needed for severe pain. Max Daily Amount: 20 mg 15 mL 4 Active multivitamin with minerals (CEROVITE) Liquid liquidIndicatio ns:Difficult airway for intubation, subsequent encounter 15 mL by Feeding Tube route daily. 450 mL 4 Active amLODIPine (NORVASC) 2.5 MG tablet Take 2.5 mg by mouth. Active levothyroxine (SYNTHROID, LEVOTHROID) 75 MCG tablet Take 75 mcg by mouth. Active ezetimibe (ZeTIA) 10 MG tablet 0 Refills, Maintenance, 11/14/23 15:58:00 EDT, Partial fill upon patient request if the prescription is for a schedule II opioid drug. 4 Active Active Problems Problem Noted Date Diagnosed [...] Encounters Date Type Department Care Team Description 10/01/2024 1:15 PM EDT Office Visit [facility] [address], [address] [place] [address] Sergio Tinajero MD Dysphonia (Primary Dx); Pharyngeal dysphagia; Laryngeal cancer (HCC); Edema of larynx from Last 3 Months Social History Tobacco Use Types Packs/Day Years Used Date Smoking Tobacco: Former Cigarettes 0.5 66.4 S tarted: 1960 Smokeless Tobacco: Never Tobacco Cessation:Counseling Given: Not Answered Alcohol Use Standard Drinks/Week Comments Never 0 (1 standard drink = 0.6 oz pur e alcohol) [facility] Utilities Answer Date Recorded In the past 12 months has th e electric, gas, oil, or water company threatened to [...] in a mcc (including now)? No 08/17/2023 Comments Unknown Sex and Gender Information Value Date Recorded Sex Assigned at Female 08/16/2023 12:07 PM EST Legal Sex Female 8:02 AM EST Gender Identity Female 08/16/2023 12:07 PM [...] EDT Inhaled Oxygen Concentration - - Weight 59 kg (130 lb) 10/01/2024 12:52 PM EDT Height 154.9 cm (5' 1 ) 10/01/2024 12:52 PM EDT Body Mass Index 24.56 10/01/2024 12:52 PM EDT Plan of Treatment Upcoming Encounters Date Type Department Care Team (Late st Contact Info) Description 02/04/2025 1:30 PM EDT Office Visit [facility] [address], [facility] [address] [place] [phone] Sergio Tinajero MD [address] [place] [address] Health Maintenance Due Date Last Done Comments [...] - 1-dose 75+ series) 2023 Influenza Vaccine 01/09/2025 Hepatitis B Vaccines Aged Out No long er eligible based on patient's age to complete this topic Medical Devices Implanted Type Area Linesperson Device Identifier Shelf Expiration Date Model / Serial / Lot [id number] Tube 16fr Lala Bls Feed Internal Rtnt Balloon Rcs Dist Tip - [id number] Implanted:Qty: 1 on 08/23/2023 by Cheri Herrera MD at [facility] Tube N/A: Abdomen [id number] / / Insurance [facility] MEDICARE [facility] MEDICARE Advance Directives * Full Code (Latest Code Status on File) Date Activated Date Inactivated Comments 08/17/2023 7:40 AM * Full Code Date Activated Date Inactivated Comments 08/16/2023 1:44 PM 08/17/2023 7:40 AM Care Teams Safety Relief Valve Technician Relationship Specialty Start Date End Date Meron Gil MD [address] [place] [id number] PCP - General 08/16/23
== END 2024-10-21 13:58 | disposition home or self-care (01) ==
LOC: HO.HCS 13:27
PROVIDERS: PCP Internal Medicine; Visit Provider Internal Medicine Cardiovascular Disease
DX: I25.10 Atherosclerotic heart disease of native coronary artery without angina pectoris (principal); I10 Essential (primary) hypertension
CPT/HCPCS: 93010; 99214; G2211

== ENCOUNTER → 2024-10-21 13:26 | Outpatient (BNVA) | payer MEDICARE, SELFPAY | PROVIDERS: PCP Internal Medicine; Visit Provider Internal Medicine Cardiovascular Disease | DX: I25.10 Atherosclerotic heart disease of native coronary artery without angina pectoris (principal); I10 Essential (primary) hypertension; I45.10 Unspecified right bundle-branch block; R94.31 Abnormal electrocardiogram [ECG] [EKG] | CPT/HCPCS: 93005; 99212 ==

== ENCOUNTER 2024-10-27 13:50 | Outpatient (AMB) | payer MEDICARE, SELFPAY ==
--- OUTSIDE RECORDS SUMMARY | 2024-10-27 13:55 | XMS_ITS | Clinical Summary ---
Author Organization [facility] Address [address] [place] [address] Care Team Providers Care Finisher Hot Strip Name Role Phone Meron Gil MD Primary Care Provider [phone] Allergies Active Allergy Reactions Criticality Noted Date [...] Visit [facility] [address], [address] [place] [address] Sergio Tinajero MD Dysphonia (Primary Dx); Pharyngeal dysphagia; Laryngeal cancer (HCC); Edema of larynx from Last 3 Months Social History Tobacco Use Types Packs/Day Years Used Date Smoking Tobacco: Former Cigarettes 0.5 66.4 S tarted: 1960 Smokeless Tobacco: Never Tobacco Cessation:Counseling Given: Not Answered Alcohol Use Standard Drinks/Week Comments Never 0 (1 standard drink = 0.6 oz pur e alcohol) [facility] Utilities Answer Date Recorded In the [...] place to sleep or slept in a skilled nursing (including now)? No 08/17/2023 Comments Unknown Sex [...] Visit [facility] [address], [facility] [address] [place] [phone] Sergio Tniajero MD [address] [place] [address] Health Maintenance Due Date Last [...] this topic Medical Devices Implanted Type Area Pot Sander Device Identifier Shelf Expiration Date Model / Serial / Lot [id number] Tube 16fr [employer] Feed Internal Rtnt Balloon Rcs Dist Tip - [id number] Implanted:Qty: 1 on 08/23/2023 by Cheri Herrera MD at [facility] Tube N/A: Abdomen [id number] / / Insurance [facility] MEDIC[facility] Advance Directives * Full Code (Latest Code Status on File) Date Activated Date Inactivated Comments 08/17/2023 7:40 AM * Full Code Date Activated Date Inactivated Comments 08/16/2023 1:44 PM 08/17/2023 7:40 AM Care Teams Finisher Hot Strip Relationship Specialty Start Date End Date Meron Gil MD [address] [place] [address] PCP - General 08/16/23
--- OUTSIDE RECORDS SUMMARY | 2024-10-27 13:55 | XMS_ITS ---
Author Organization [facility] Address [address] [place] [address] Care Team Providers Care Insulation Foreman Name Role Phone Meron Gil MD Primary [...]
--- NOTE | 2024-10-27 14:03 | MHC.PC.OV ---
Vital Signs 10/27/24 14:06 Height 5 ft 1 in Weight 129 lb BMI 24.4 BP 122/74 Blood Pressure Location Rt brachial Position Sitting Respiration 20 Pulse 71 Pulse Source Pulse Oximeter Temp 98.2 F Temp Source Oral Pulse Oximetry (%) 96 Oxygen Delivery Method Room Air Intake Visit Reasons: 6m follow up Intake Note: Pt is here today for 6 months follow up visit. Allergies ranitidine [From Zantac] Allergy (Unknown, Verified 10/27/24 14:11) Rash lisip Adverse Reaction (Intermediate, Uncoded 10/27/24 14:11) Cough Medication List - Last Reconciled 10/27/24 by Meron Gil MD amlodipine 2.5 mg PO DAILY aspirin (Ecotrin Low Strength) 81 mg PO DAILY ezetimibe 10 mg PO DAILY levothyroxine 100 mcg PO DAILY metoprolol tartrate 25 mg PO BID nitroglycerin 0.1 mg/hr (Nitro-Dur) 1 patch transdermal DAILY rosuvastatin 40 mg PO DAILY Tobacco use date assessed: 10/27/24 Fall risk assessment: 2 + Falls in past year Last assessed Fall Risk: 10/27/24 Dental Screening Dental Screen Date: 10/27/24 Did you have a dental visit in the last 12 months?: No Did you have a dental problem in the last 6 months where you did not have access to dental care?: No Was dental information given to patient?: Patient declined HPI 6m follow up HPI Details Patient presents for the follow-up on hyperlipidemia hypothyroidism peripheral vascular disease coronary artery disease stable on current medications. PFSH Medical History Anemia S/P angiogram of extremity (~04/12/22) PVD (peripheral vascular disease) HTN (hypertension) Carotid disease, bilateral CAD (coronary artery disease) Smoker Surgical History H/O carotid endarterectomy History of cardiac cath Social History Housing: House Patient Tobacco Use Status: Former Tobacco user Cigarettes Per Day: 5 e-Cigarette/Vaping Use: Never Used Advance Directives Date on File: 03/24/20 service: No Current occupational status: disabled Cognitive needs: No Hearing needs: No Vision needs: Yes Questionnaire PHQ-9 Over the last 2 weeks, how often have you been bothered by any of the following problems? 1. Little interest or pleasure in doing things: not at all 2. Feeling down, depressed, or hopeless: not at all 3. Trouble falling or staying asleep, or sleeping too much: several days 4. Feeling tired or having little energy: not at all 5. Poor appetite or overeating: not at all 6. Feeling bad about yourself - or that you are a failure or have let yourself or your family down: not at all 7. Trouble concentrating on things, such as reading the newspaper or watching television: not at all 8. Moving or speaking so slowly that other people could have noticed. Or the opposite - being so fidgety or restless that you have been moving around a lot more than usual: not at all 9. Thoughts that you would be better off or of hurting yourself in some way: not at all Total score: 1 Depression Screening Interpretation: Negative Depression Screening Done: Yes 46196 - PHQ-9 Billing: Yes Source: Developed by Drs. Shiv Hammer, Jeannie Gerardo, Hebert Catalan and colleagues, with an educational nelson from [employer]. Thrive Questionnaire Date Thrive assessed: 10/27/24 I am a: Patient What is your living situation today?: I have a steady place to live Within the past 12 months, did the food you bought not last and you didn't have the money to get more?: Sometimes True Within the past 12 months, did you worry whether your food would run out before you got money to buy more?: Never true Do you have trouble paying for medicines?: No Do you have trouble getting transportation to medical appointments?: No Do you have trouble paying your heating and electricity bill?: No Do you have trouble taking care of your child, family member or friend?: No Do you have trouble with day-to-day activities such as bathing, preparing meals, shopping, managing finances, etc.?: No Are you currently unemployed and looking for a job?: No Are you interested in more education?: No Please select the resources that you would like help with: None Currently or been in a relationship where the following occur: No concerns reported THRIVE Score: 1 AUDIT C Alcohol Use Questionnaire (AUDIT-C) 1. How often do you have a drink containing alcohol?: Never 3. How often do you have six or more drinks on one occasion?: Never Total Score: 0 ARIELLE-7 AMB Questionnaire ARIELLE-7 Date ARIELLE - 7 assessed: 10/27/24 Feeling nervous, anxious, or on edge: 1 = Several days Not being able to stop or control worryin = Not at all Worrying too much about different things: 0 = Not at all Trouble relaxin = Not at all Being so restless that it is hard to sit still: 0 = Not at all Becoming easily annoyed or irritable: 1 = Several days Feeling afraid as if something awful might happen: 0 = Not at all Total ARIELLE-7 score (0-4 normal; 5-9 mild; 10-14 moderate; 15-21 severe): 2 Source: Developed by Drs. Shiv Hammer, Jeannie Gerardo, Hebert Catalan and colleagues, with an educational nelson from [employer]. ARIELLE-7 Assessment Billing ARIELLE-7 Assessment Tool: ARIELLE-7 Assessment 05113 Review of Systems Const All systems reviewed & are unremarkable except as noted in HPI and below Eyes Reports no additional complaints ENT Reports no additional complaints Card Reports no additional complaints Resp Reports no additional complaints GI Reports no additional complaints Reports no additional complaints Physical exam (Primary Care) Vital Signs: Last Vital Signs Temp 98.2 F 10/27/24 14:06 Pulse 71 10/27/24 14:06 Resp 20 10/27/24 14:06 BP 122/74 10/27/24 14:06 Pulse Ox 96 10/27/24 14:06 Oxygen Delivery Method Room Air 10/27/24 14:06 BMI result Body Mass Index 24.4 Tobacco/Smoking Status: Tobacco use Status Tobacco use date assessed 10/27/24 10/27/24 14:15 Patient Tobacco Use Status Former Tobacco user 10/27/24 14:04 e-Cigarette/Vaping Use Never Used 10/27/24 14:04 PHQ-9: PHQ-9 Score PHQ-9: Total score 1 10/27/24 14:18 Depression Screening Interpretation: Negative Thrive Assessment: Date of Thrive Assessment Date Thrive assessed 10/27/24 10/27/24 14:18 Currently or been in a relationship where the following occur: No concerns reported Const General: no acute distress HENMT Mouth: Normal oral and palatal mucosa present Neck Neck: Yes no lymphadenopathy and Yes supple Resp Effort & Inspection: normal respiratory effort Auscultation: clear to auscultation bilaterally Cardio Rhythm: regular rhythm Heart sounds: S1 normal heart sound present and S2 normal heart sound present GI Inspection: Yes normal to inspection Palpation (GI): Soft to palpation Percussion: Yes normal to percussion Coding Level of Care Code Est Pt Level 4 (49723) Complex EM visit Add On G2211 Diagnoses Hypothyroid E03.9 Anemia D64.9 HTN (hypertension) I10 PAD (peripheral artery disease) I73.9 Laryngeal cancer C32.9 Gastrointestinal tube in situ Z93.[address] Z93.0 Carotid disease, bilateral I77.9 CAD (coronary artery disease) I25.10 Additional Codes ARIELLE-7 Assessment Billing - ARIELLE-7 Assessment Tool: ARIELLE-7 Assessment 54537 ([id number]) PHQ-9 - 73234 - PHQ-9 Billing: Yes ([id number]) Assessment & Plan Assessment & Plan (1) Hypothyroid: Code(s): E03.9 - Hypothyroidism, unspecified Category: Medical Plan: Continue levothyroxine check TSH today (2) Anemia: Code(s): D64.9 - Anemia, unspecified Category: Medical Plan: Repeat CBC iron studies B12 level (3) HTN (hypertension): Code(s): I10 - Essential (primary) hypertension Category: Medical Plan: Continue current medications (4) PAD (peripheral artery disease): Comment: 04/12/2022- right and left common iliac plasty, f/u Dr. 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 09/01 Code(s): Z93.1 - Gastrostomy status Category: Medical Plan: Stable improving nutritional state (7) Tracheostomy in place: Comment: [facility] 09/01 at [facility], F/U ENT in [place] Code(s): Z93.0 - Tracheostomy status Category: Medical Plan: f/u ENT (8) Carotid disease, bilateral: Comment: 07/17/2017 - right carotid endarterectomy Code(s): I77.9 - Disorder of arteries and arterioles, unspecified Category: Medical Plan: Continue high dose of statin and follow-up with vascular surgeon (9) CAD (coronary artery disease): Comment: [employer] COREROOM of RCA with collaterals, medical management. Code(s): I25.10 - Atherosclerotic heart disease of [place] coronary artery without angina pectoris Category: Medical Plan: Continue current medications Orders: Orders TSH reflex Free T4 Today D64.9 - Anemia, unspecified, E03.9 - Hypothyroidism, unspecified Comprehensive Met. Panel Today D64.9 - Anemia, unspecified, E03.9 - Hypothyroidism, unspecified Complete Blood Count Auto Diff Today D64.9 - Anemia, unspecified, E03.9 - Hypothyroidism, unspecified Vitamin B12 and Folate Today D64.9 - Anemia, unspecified, E03.9 - Hypothyroidism, unspecified Protein Electrophoresis, Serum Today D64.9 - Anemia, unspecified, E03.9 - Hypothyroidism, unspecified Complete Blood Count Auto Diff 6 Months D64.9 - Anemia, unspecified, E03.9 - Hypothyroidism, unspecified, I10 - Essential (primary) hypertension, I73.9 - Peripheral vascular disease, unspecified Lipid Panel 6 Months D64.9 - Anemia, unspecified, E03.9 - Hypothyroidism, unspecified, I10 - Essential (primary) hypertension, I73.9 - Peripheral vascular disease, unspecified Comprehensive Strawberry. Panel Fast 6 Months D64.9 - Anemia, unspecified, E03.9 - Hypothyroidism, unspecified, I10 - Essential (primary) hypertension, I73.9 - Peripheral vascular disease, unspecified TSH reflex Free T4 6 Months D64.9 - Anemia, unspecified, E03.9 - Hypothyroidism, unspecified, I10 - Essential (primary) hypertension, I73.9 - Peripheral vascular disease, unspecified Vitamin D 25-OH Total 6 Months D64.9 - Anemia, unspecified, E03.9 - Hypothyroidism, unspecified, I10 - Essential (primary) hypertension, I73.9 - Peripheral vascular disease, unspecified Vitamin B12 and Folate 6 Months D64.9 - Anemia, unspecified, E03.9 - Hypothyroidism, unspecified, I10 - Essential (primary) hypertension, I73.9 - Peripheral vascular disease, unspecified Medications: Refilled ezetimibe 10 mg PO DAILY 90 tabs 3RF
[2024-10-27 14:06] VITALS: BP 122/74; PULSE 71; RESP 20; TEMP 36.8; O2SAT 96; BMI 24.4
== END 2024-10-27 14:59 | disposition home or self-care (01) ==
LOC: HO.HMCC 13:51
PROVIDERS: PCP Internal Medicine; Visit Provider Internal Medicine
DX: E03.9 Hypothyroidism, unspecified (principal); C32.9 Malignant neoplasm of larynx, unspecified; Z93.1 Gastrostomy status; Z93.0 Tracheostomy status; D64.9 Anemia, unspecified; I10 Essential (primary) hypertension; I73.9 Peripheral vascular disease, unspecified; I77.9 Disorder of arteries and arterioles, unspecified; I25.10 Atherosclerotic heart disease of native coronary artery without angina pectoris

== ENCOUNTER 2024-10-27 13:50 | Outpatient (REF) | payer MEDICARE, SELFPAY ==
--- OUTSIDE RECORDS SUMMARY | 2024-10-27 15:01 | XMS_ITS ---
Author Organization [facility] Address [address] [place] [id number] Care Team Providers Care Events Director Name Role Phone Meron Gil MD Primary Care Provider [phone] Active Problems Problem Noted Date Diagnosed Date [...]
--- OUTSIDE RECORDS SUMMARY | 2024-10-27 15:01 | XMS_ITS | Clinical Summary ---
Author Organization [facility] Address [address] [place] [id number] Care Team Providers Care County Auditor Name Role Phone Meron Gil MD Primary Care Provider [phone] Allergies Active Allergy Reactions Criticality Noted Date [...] Description 10/01/2024 1:15 PM EDT Office Visit [facility] [address], [address] [place] [address] Sergio Tinajero MD Dysphonia (Primary Dx); Pharyngeal dysphagia; Laryngeal cancer (HCC); Edema of larynx from Last 3 Months Social History Tobacco Use Types Packs/Day Years Used Date Smoking Tobacco: Former Cigarettes 0.5 66.4 S tarted: 1960 Smokeless Tobacco: Never Tobacco Cessation:Counseling Given: Not Answered Alcohol Use Standard Drinks/Week Comments Never 0 (1 standard drink = 0.6 oz pur e alcohol) [facility] Utilities Answer Date Recorded In the [...] place to sleep or slept in a senior living (including now)? No 08/17/2023 Comments Unknown Sex [...] Description 02/04/2025 1:30 PM EDT Office Visit [facility] [address], [facility] [address] [place] [phone] Sergio Tinajero MD [address] [place] [address] Health Maintenance Due Date Last [...] this topic Medical Devices Implanted Type Area Expeller Worker Device Identifier Shelf Expiration Date Model / Serial / Lot [id number] Tube 16fr [employer] Feed Internal Rtnt Balloon Rcs Dist Tip - [id number] Implanted:Qty: 1 on 08/23/2023 by Cheri Herrera MD at [facility] Tube N/A: Abdomen [id number] / / Insurance [facility] MEDICARE [facility] MEDICARE Advance Directives * Full Code (Latest Code Status on File) Date Activated Date Inactivated Comments 08/17/2023 7:40 AM * Full Code Date Activated Date Inactivated Comments 08/16/2023 1:44 PM 08/17/2023 7:40 AM Care Teams County Auditor Relationship Specialty Start Date End Date Meron Gil MD [address] [place] [id number] PCP - General 08/16/23
[2024-10-27 16:10] LABS: MANUAL DIFF FLAG NO
[2024-10-27 16:16] LABS: Basophils Absolute Auto 0.1 X10*3/uL (0.0-0.2); Basophils Percent Auto 0.9 % (0-2); Eosinophils Absolute Auto 0.2 X10*3/uL (0.0-0.4); Eosinophils Percent Auto 4.3 % (0-4); Hematocrit 35.6 % (37.0-47.0); Hemoglobin 11.5 g/dl (12.0-16.0); Imm Gran Abs Auto 0.02 X10*3/uL (0.00-0.03); Imm Gran Pct Auto 0.4 % (0.0-0.4); Lymphocytes Absolute Auto 0.9 X10*3/uL (1.2-4.9); Lymphocytes Percent Auto 16.2 % (20-40); Mean Corpuscular HGB Conc 32.3 g/dl (31.0-35.0); Mean Corpuscular Hemoglobin 29.4 pg (27.0-33.0); Mean Platelet Volume 9.6 fL (9.4-12.3); Monocytes Absolute Auto 0.5 X10*3/uL (0.1-1.2); Monocytes Percent Auto 9.2 % (2-11); Neutrophils Absolute Auto 3.8 x10*3/uL (2.0-8.3); Platelet Count 309 X10*3/uL (160-400); Red Blood Count 3.91 X10*6/uL (4.20-5.50); Red Cell Distribution Width 12.8 % (11.0-16.0); White Blood Count 5.5 X10*3/uL (4.8-10.8)
[2024-10-27 17:05] LABS: Alanine Aminotransferase 16 U/L (0-31); Albumin Level 4.2 g/dL (3.5-5.0); Anion Gap 14 (12-20); Aspartate Amino Transferase 38 U/L (5-31); Bilirubin Total 0.3 mg/dL (0.0-1.0); Blood Urea Nitrogen 14 mg/dL (9-16); Calcium 9.4 mg/dL (8.4-10.2); Carbon Dioxide 26 mmol/L (22-29); Chloride 99 mmol/L (96-108); Estimated Glomerular Filt Rate 57; Glucose Random 94 mg/dL (60-115); Potassium 4.9 mmol/L (3.3-5.1); Sodium 134 mmol/L (135-145); TSH reflex Free T4 54.48 uIU/mL (0.32-4.0); Total Protein 7.7 g/dL (6.5-8.0)
[2024-10-27 17:11] LABS: Folate 9.6 ng/mL (> or = 4.0); Vitamin B12 406 pg/mL (200-900)
[2024-10-27 17:36] LABS: Alkaline Phosphatase 66 U/L (39-117)
[2024-10-28 21:34] LABS: Prot Elec - Albumin 4.2 g/dL (3.8-4.8); Prot Elec - Alpha1 0.3 g/dL (0.2-0.3); Prot Elec - Alpha2 0.7 g/dL (0.5-0.9); Prot Elec - Beta 1 0.4 g/dL (0.4-0.6); Prot Elec - Beta 2 0.4 g/dL (0.2-0.5); Prot Elec - Gamma 1.2 g/dL (0.8-1.7); Prot Elec - Total Protein 7.3 g/dL (6.1-8.1)
== END 2024-10-27 13:51 | disposition home or self-care (01) ==
LOC: HO.HMGCLDS 13:50
PROVIDERS: PCP Internal Medicine; Visit Provider Internal Medicine
DX: E03.9 Hypothyroidism, unspecified (principal); D64.9 Anemia, unspecified; I10 Essential (primary) hypertension; I73.9 Peripheral vascular disease, unspecified; C32.9 Malignant neoplasm of larynx, unspecified; I77.9 Disorder of arteries and arterioles, unspecified; I25.10 Atherosclerotic heart disease of native coronary artery without angina pectoris; E78.5 Hyperlipidemia, unspecified; Z79.899 Other long term (current) drug therapy; Z92.21 Personal history of antineoplastic chemotherapy; Z93.1 Gastrostomy status; Z93.0 Tracheostomy status
CPT/HCPCS: 36415; 80053; 82607; 82746; 84165; 84439; 84443; 85025; 96127; 99212

== ENCOUNTER 2025-04-28 10:25 | Outpatient (REF) | payer MEDICARE, SELFPAY ==
[2025-04-28 13:31] LABS: MANUAL DIFF FLAG NO
[2025-04-28 13:41] LABS: Hematocrit 35.7 % (37.0-47.0); Hemoglobin 11.3 g/dl (12.0-16.0); Imm Gran Abs Auto 0.02 X10*3/uL (0.00-0.03); Imm Gran Pct Auto 0.4 % (0.0-0.4); Lymphocytes Absolute Auto 0.7 X10*3/uL (1.2-4.9); Mean Corpuscular HGB Conc 31.7 g/dl (31.0-35.0); Mean Corpuscular Hemoglobin 29.4 pg (27.0-33.0); Mean Corpuscular Volume 92.7 fL (80.0-98.0); NRBC Abs Auto 0.000 X10*3/uL (0.0-0.012); NRBC Pct Auto 0.0 /100WBC (0.0-0.2); Platelet Count 289 X10*3/uL (160-400); Red Blood Count 3.85 X10*6/uL (4.20-5.50); White Blood Count 4.5 X10*3/uL (4.8-10.8)
[2025-04-28 14:21] LABS: Alanine Aminotransferase 19 U/L (0-31); Albumin Level 4.5 g/dL (3.5-5.0); Alkaline Phosphatase 68 U/L (39-117); Anion Gap 13 (12-20); Aspartate Amino Transferase 37 U/L (5-31); Blood Urea Nitrogen 13 mg/dL (9-16); Calcium 9.6 mg/dL (8.4-10.2); Carbon Dioxide 26 mmol/L (22-29); Chloride 100 mmol/L (96-108); Cholesterol 246 mg/dL (<200); Estimated Glomerular Filt Rate 53; HDL Cholesterol 59 mg/dL (>40); Potassium 4.9 mmol/L (3.3-5.1); Sodium 134 mmol/L (135-145); Total Protein 7.7 g/dL (6.5-8.0); Triglycerides 130 mg/dL (<150)
[2025-04-28 14:46] LABS: Folate 7.9 ng/mL (> or = 4.0); Vitamin B12 324 pg/mL (200-900)
[2025-04-28 15:34] LABS: Free T4 (Free Thyroxine) 0.69 ng/dL (0.71-1.85)
== END 2025-04-28 10:26 | disposition home or self-care (01) ==
LOC: HO.HMGCLDS 10:25
PROVIDERS: PCP Internal Medicine; Visit Provider Internal Medicine
DX: I10 Essential (primary) hypertension (principal); E03.9 Hypothyroidism, unspecified; I73.9 Peripheral vascular disease, unspecified; D64.9 Anemia, unspecified; Z13.21 Encounter for screening for nutritional disorder
CPT/HCPCS: 36415; 80053; 80061; 82306; 82607; 82746; 84439; 84443; 85025

== ENCOUNTER 2025-04-29 14:13 | Outpatient (AMB) | payer MEDICARE, SELFPAY ==
[2025-04-29 14:15] VITALS: BP 136/68; PULSE 67; RESP 18; O2SAT 97; BMI 24.6
--- NOTE | 2025-04-29 14:15 | A.OFFPC_ITS ---
Vital Signs 04/29/25 14:15 Height 5 ft 1 in Weight 130 lb BMI 24.6 BP 136/68 Blood Pressure Location Rt brachial Position Sitting Respiration 18 Pulse 67 Pulse Source Pulse Oximeter Pulse Oximetry (%) 97 Oxygen Delivery Method Room Air Intake Visit Reasons: 6m follow up Intake Note: Pt is here today for 6 months follow up visit. Allergies ranitidine (From Zantac) Allergy (Unknown, Verified 04/29/25 14:21) Rash lisip Adverse Reaction (Intermediate, Uncoded 04/29/25 14:21) Cough Medication List - Last Reconciled 04/29/25 by Meron Gil MD amlodipine 2.5 mg PO DAILY aspirin (Ecotrin Low Strength) 81 mg PO DAILY ezetimibe 10 mg PO DAILY levothyroxine (Synthroid) 137 mcg PO DAILY metoprolol tartrate 25 mg PO BID nitroglycerin 0.1 mg/hr (Nitro-Dur) 1 patch transdermal DAILY rosuvastatin 40 mg PO DAILY Tobacco use date assessed: 04/29/25 Dental Screening Dental Screen Date: 10/27/24 HPI 6m follow up HPI Details Patient presents for the follow-up on hypertension hyperlipidemia hypothyroidism. Patient has persistently elevated TSH level. She reports taking levothyroxine with the rest of her medications in the morning and there is a questionable compliance due to possible forgetfulness. Patient became very angry when asked about details. She complains of poor balance for years and was evaluated by neurology in the past. She is using cane to ambulate outside of her house and denies falls. Patient had a CT of the neck for surveillance of laryngeal cancer which showed possible high-grade stenosis left proximal cervical ICA. Because of tracheostomy patient can not have carotid artery Doppler. PFSH Medical History Hyperlipemia Laryngeal cancer Tracheostomy in place Hypothyroid PAD (peripheral artery disease) Left carotid artery stenosis Anemia S/P angiogram of extremity (~04/12/22) PVD (peripheral vascular disease) HTN (hypertension) Carotid disease, bilateral CAD (coronary artery disease) Smoker Surgical History H/O carotid endarterectomy History of cardiac cath Social History Housing: House Patient Tobacco Use Status: Former Tobacco user Cigarettes Per Day: 5 e-Cigarette/Vaping Use: Never Used Advance Directives Date on File: 03/24/20 service: No Current occupational status: disabled Cognitive needs: No Hearing needs: No Vision needs: Yes Questionnaire Thrive Questionnaire Date Thrive assessed: 10/27/24 I am a: Patient What is your living situation today?: I have a steady place to live Within the past 12 months, did the food you bought not last and you didn't have the money to get more?: Sometimes True Within the past 12 months, did you worry whether your food would run out before you got money to buy more?: Never true Do you have trouble paying for medicines?: No Do you have trouble getting transportation to medical appointments?: No Do you have trouble paying your heating and electricity bill?: No Do you have trouble taking care of your child, family member or friend?: No Do you have trouble with day-to-day activities such as bathing, preparing meals, shopping, managing finances, etc.?: No Are you currently unemployed and looking for a job?: No Are you interested in more education?: No Please select the resources that you would like help with: None Currently or been in a relationship where the following occur: No concerns reported THRIVE Score: 1 ARIELLE-7 AMB Questionnaire ARIELLE-7 Date ARIELLE - 7 assessed: 10/27/24 Source: Developed by Drs. Shiv Hammer, Jeannie Gerardo, Hebert Catalan and colleagues, with an educational nelson from [employer]. Review of Systems Const All systems reviewed & are unremarkable except as noted in HPI and below ENT Reports no additional complaints Card Reports no additional complaints Resp Reports no additional complaints GI Reports no additional complaints Reports no additional complaints Physical exam (Primary Care) Vital Signs: Last Vital Signs Pulse 67 04/29/25 14:15 Resp 18 04/29/25 14:15 BP 136/68 04/29/25 14:15 Pulse Ox 97 04/29/25 14:15 Oxygen Delivery Method Room Air 04/29/25 14:15 BMI result Body Mass Index 24.6 Tobacco/Smoking Status: Tobacco use Status Tobacco use date assessed 04/29/25 04/29/25 14:22 Patient Tobacco Use Status Former Tobacco user 04/29/25 14:22 e-Cigarette/Vaping Use Never Used 04/29/25 14:22 Thrive Assessment: Date of Thrive Assessment Date Thrive assessed 10/27/24 04/29/25 14:22 Currently or been in a relationship where the following occur: No concerns reported Const General: no acute distress HENMT Other: Tracheostomy in place Head: Yes normal to inspection Resp Effort & Inspection: normal respiratory effort Auscultation: diminished lung sounds Cardio Rhythm: regular rhythm Heart sounds: S1 normal heart sound present and S2 normal heart sound present GI Inspection: Yes normal to inspection Neuro Gait exam (Neuro): Staggering gait present Motor exam (neuro): 5/5 motor strength present throughout Romberg Test: Positive Coding Level of Care Code Est Pt Level 4 (60186) Diagnoses Hypothyroid E03.9 Left carotid artery stenosis I65.22 Hyperlipemia E78.5 Laryngeal cancer C32.9 Assessment & Plan Assessment & Plan (1) Hypothyroid: Comment: Persistently elevated TSH level, patient refused to increase the dose of levothyroxine to 150 mcg (from 125 mcg) because of previous experience with side effects including lethargy and fatigue Code(s): E03.9 - Hypothyroidism, unspecified Category: Medical Plan: Patient will try increase Synthroid to 137 mcg daily. She was advised to take it on an empty stomach and wait at least 30 minutes before taking the rest of her medications and eating. TSH and free T3 and free T4 will be checked in 2 months (2) Left carotid artery stenosis: Comment: Possibly high-grade stenosis of ICA on CT of neck 04/2025 Code(s): I65.22 - Occlusion and stenosis of left carotid artery Category: Medical Plan: Obtain CT angiogram of neck to evaluate for left carotid artery stenosis (3) Hyperlipemia: Code(s): E78.5 - Hyperlipidemia, unspecified Category: Medical Plan: Total cholesterol is very high at 246 completing 127 before. Patient reports taking Crestor daily but has difficulty swallowing large pills because of tracheostomy. She was given option of trying 2 tabl of 20 mg of Crestor instead but she declined. Lipid profile will be rechecked in 2 months (4) Laryngeal cancer: Comment: s/p surgery, RTx chemo 2020, tracheostomy in place established with ENT, Surveillance CT of the neck negative for recurrence 04/2025 Code(s): C32.9 - Malignant neoplasm of larynx, unspecified Category: Medical Plan: Follow-up with the ENT Orders: Orders TSH reflex Free T4 2 Months E03.9 - Hypothyroidism, unspecified CT angio neck Today I65.22 - Occlusion and stenosis of left carotid artery Lipid Panel 2 Months E78.5 - Hyperlipidemia, unspecified Triiodothyronine T3 Free 2 Months E03.9 - Hypothyroidism, unspecified Vitamin D 25-OH Total 2 Months E55.9 - Vitamin D deficiency, unspecified, E78.5 - Hyperlipidemia, unspecified Medications: New levothyroxine (Synthroid) 137 mcg PO DAILY 30 tabs 1RF cholecalciferol (vitamin D3) 50 mcg (25 mL) PO DAILY 480 mL 4RF Discontinued levothyroxine Discontinued Reason: Doctor's Order 125 mcg PO DAILY 90 tabs 0RF
--- OUTSIDE RECORDS SUMMARY | 2025-04-30 02:43 | XMS_ITS | Clinical Summary ---
Author Organization [facility] Address [address] [place] [address] Care Team Providers Care Property Specialist Name Role Phone Meron Gil MD Primary Care Provider [phone] Allergies Active Allergy Reactions Criticality Noted Date [...] Encounters Date Type Department Care Team Description 04/06/2025 Scanned Document [facility] [address], [address] [address] Sergio Tinajero MD 03/31/2025 Scanned Document [facility] [address], [address] [address] Sergio Tinajero MD 02/04/2025 1:30 PM EDT Office Visit [facility] [address], [address] [place] [address] Sergio Tinajero MD Dysphonia (Primary Dx); Pharyngeal dysphagia; Laryngeal cancer (HCC); Edema of larynx; Pre-operative laboratory examination 02/03/2025 Scanned Document [facility] [address], [address] [place] [phone] Sergio Tinajero MD 01/29/2025 Scanned Document [facility] [address], [address] [address] Sergio Tinajero MD from Last 3 Months Social History Tobacco Use Types Packs/Day Years Used Date Smoking Tobacco: Former Cigarettes 0.5 66.9 S tarted: 1960 Smokeless Tobacco: Never Tobacco Cessation:Counseling Given: Not Answered Alcohol Use Standard Drinks/Week Comments Never 0 (1 standard drink = 0.6 oz pur e alcohol) [facility] [employer] Answer Date Recorded In the past 12 months has [employer], gas, oil, or water [employer] threatened to shut off services in your [...] place to sleep or slept in a long term (including now)? No 08/17/2023 Comments Unknown Sex [...] 81 08/27/2023 8:45 AM EDT Temperature 37 C (98.6 F) 08/27/2023 8:45 AM EDT Respiratory Rate 20 08/27/2023 8:45 AM EDT Oxygen Saturation 95% 08/27/2023 8:45 AM EDT Inhaled Oxygen Concentration - - Weight 58.6 kg (129 lb 3.2 oz) 02/04/2025 1:02 P M EDT Height 154.9 cm (5' 1 ) 02/04/2025 1:02 PM EDT Body Mass Index 24.41 02/04/2025 1:02 PM EDT Plan of Treatment Health Maintenance Due Date Last Done Comments Advance Care Planning 1950 Hepatitis C Virus Screening 1950 COVID-19 Vaccine (#1) 1953 DTaP/Tdap/Td Vaccines (1 - Tdap) 1967 Pneumococcal Vaccines 50+ (1 of 2 - PCV) 1967 Zoster (Shingles) Vaccine (1 of 2) 1967 DXA Bone Density (Females,Ag es 65 and older) 2013 RSV Vaccine 50 years and old er and Patients (1 - 1-dose 75+ series) 2023 Influenza Vaccine 01/09/2025 Hepatitis B Vaccines Aged Out No long er eligible based on patient's age to complete this topic Medical Devices Implanted Type Area Funder Device Identifier Shelf Expiration Date Model / Serial / Lot [id number] Tube 16fr [employer] Feed Internal Rtnt Balloon Rcs Dist Tip - [id number] Implanted:Qty: 1 on 08/23/2023 by Invasive, ProceduralistMD at Tube N/A: [employer]dom[employer] [id number] / / Procedures Procedure Name Priority Date/Time Associated Diagnosis Comments CT THORAX W/CONTRAST Routine 04/21/2025 1:[address] Laryngeal cancer (HCC) CT SOFT TISSUE NECK W/CONTRAST Routine 04/17/2025 1:47 PM EST Laryngeal cancer (HCC) from Last 3 Months Results * CT Thorax w/contrast (04/21/2025 1:27 PM EST) Anatomical Region Laterality Modality Chest Computed Tomogra phy Sergio Tinajero MD [facility] CT ORDERABLES Final Result * CT Soft tissue neck w/contrast (04/17/2025 1:47 PM EST) Anatomical Region Laterality Modality Neck Computed Tomogra phy Sergio Tinajero MD [facility] CT ORDERABLES Final Result from Last 3 Months Insurance [facility] MEDICARE [facility] MEDICARE Advance Directives * Full Code (Latest Code Status on File) Date Activated Date Inactivated Comments 08/17/2023 7:40 AM * Full Code Date Activated Date Inactivated Comments 08/16/2023 1:44 PM 08/17/2023 7:40 AM Care Teams Property Specialist Relationship Specialty Start Date End Date Meron Gil MD [address] [place], [place] [address] [place] [address] PCP - General 08/16/23
--- OUTSIDE RECORDS SUMMARY | 2025-04-30 02:43 | XMS_ITS ---
Author Organization [facility] Address [address] [place] [address] Care Team Providers Care Decorator Hand Name Role Phone Meron Gil MD Primary Care Provider [phone] Active Problems Problem Noted Date Diagnosed Date [...] Product(DAP)-cGy-cm2 91.41 cGy-cm2 91.41 cGy-cm2 0 cGy-cm2 Fluoro Time 1.6 minutes 0 minutes 1.6 minutes Resolved Problems Problem Noted Date Diagnosed Date Resolved Date Influenza A 08/27/2023 10/01/2023 Pneumonia 08/27/2023 10/01/2023
--- OUTSIDE RECORDS SUMMARY | 2025-04-30 02:43 | XMS_ITS | Encounter Summary ---
Author Organization [facility] Address [address] [place] [address] Care Team Providers Care Paint Maker Name Role Phone Meron Gil MD Primary Care Provider [phone] Encounter Details Date Type Department Care Team (Late st Contact Info) Description 04/06/2025 Scanned Document [facility] [address], [address] [place] [address] Sergio Tinajero MD [address] [place], [place] [id number] Social History Tobacco Use Types Packs/Day Years Used Date Smoking Tobacco: Former Cigarettes 0.5 66.9 S tarted: 1960 Smokeless Tobacco: Never Alcohol Use Standard Drinks/Week Comments Never 0 (1 standard drink = 0.6 oz pur e alcohol) [facility] Utilities Answer Date Recorded In the past 12 months has [employer], gas, oil, or water [employer] threatened to shut off services in your [...] PM EST documented as of this encounter Plan of Treatment Not on file documented as of this encounter Visit Diagnoses Not on filedocumented in this encounter Care Teams Paint Maker Relationship Specialty Start Date End Date Meron Gil MD [address] [place] [address] PCP - General 08/16/23 documented as of this encounter
--- OUTSIDE RECORDS SUMMARY | 2025-04-30 02:43 | XMS_ITS | Encounter Summary ---
Author Organization [facility] Address [address] [place] [address] Care Team Providers Care Automatic Screwmaker Name Role Phone Meron Gil MD Primary Care Provider [phone] Encounter Details Date Type Department Care Team (Late st Contact Info) Description 01/29/2025 Scanned Document [facility] [address], [address] [place] [address] Sergio Tinajero MD [address] [place], [place] [id number] Social History Tobacco Use Types Packs/Day Years Used Date Smoking Tobacco: Former Cigarettes 0.5 66.9 S tarted: 1960 Smokeless Tobacco: Never Alcohol Use Standard Drinks/Week Comments Never 0 (1 standard drink = 0.6 oz pur e alcohol) [facility] Utilities Answer Date Recorded In the past 12 months has [employer], gas, oil, or water [employer] threatened to shut off services in your [...] on filedocumented in this encounter Care Teams Automatic Screwmaker Relationship Specialty Start Date End Date Meron Gil MD [address] [place] [address] PCP - General 08/16/23 documented as of this encounter
--- OUTSIDE RECORDS SUMMARY | 2025-04-30 02:43 | XMS_ITS ---
Author Name [facility] Organization Unknown History of Medication Use Medication Directions Dispensed Refills Start Date End Date Stat levothyroxine (SYNTHROID, LEVOTHROID) 75 MCG tablet Take 75 mcg by mouth. 04/04/2024 active ezetimibe (ZeTIA) 10 MG tablet 0 Refills, Maintenance, 11/14/23 15:58:00 EDT, Partial fill upon patient request if the prescription is for a schedule II opioid drug. 11/14/2023 active ezetimibe (ZeTIA) 10 MG tablet 1 tablet (10 mg total) by G Tube route daily. 08/28/2023 09/28/2023 active multivitamin with minerals (CEROVITE) Liquid liquid 15 mL by Feeding Tube route daily. 08/28/2023 09/28/2023 active rosuvastatin (CRESTOR) 40 MG tablet 1 tablet (40 mg total) by G Tube route daily. 08/28/2023 09/28/2023 active thiamine mononitrate (VITAMIN B-1) 100 MG tablet 1 tablet (100 mg total) by Feeding Tube route daily. 08/28/2023 09/28/2023 active aspirin 81 MG chewable tablet 1 tablet (81 mg total) by G Tube route daily. 08/28/2023 active acetaminophen (TYLENOL) 160 mg/5 mL solution 20.3125 mL (650 mg total) by G Tube route 4 times daily (every 6 hours) as needed for mild pain. 08/27/2023 09/27/2023 active metoPROLOL TARTRATE (LOPRESSOR) 25 MG tablet 1 tablet (25 mg total) by G Tube route 2 times a day. 08/27/2023 09/27/2023 active oseltamivir (TAMIFLU) 75 MG capsule 1 capsule (75 mg total) by G Tube route every 12 (twelve) hours around the clock. 08/27/2023 09/02/2023 active cefpodoxime (VANTIN) 200 MG tablet 1 tablet (200 mg total) by G Tube route 2 (two) times a day. 08/27/2023 09/01/2023 active oxyCODONE (ROXICODONE) 5 mg/5 mL solution 5 mL (5 mg total) by G Tube route 4 times daily (every 6 hours) as needed for severe pain. Max Daily Amount: 20 mg 08/27/2023 08/31/2023 active nitroglycerin (NITRODUR) 0.1 mg/hr Place 1 patch on the skin daily. 07/17/2023 active amLODIPine (NORVASC) 2.5 MG tablet Take 2.5 mg by mouth. active Allergies Allergen Reaction Severity Comment Documented Date Source Statu s RANITIDINE RASH/DERMATITIS 08/16/2023 [facility] tive Problems Problem Status Onset Date Problem Type Date of Resoluti on Source Pharyngeal dysphagia active EncounterDiagnosisA ct [facility] Edema of larynx active EncounterDiagnosisAct [facility] HTN (hypertension) active 2023-08-26 ProblemAct [facility] Laryngeal cancer active 2024-10-01 ProblemAct H [facility] Pre-operative laboratory examination active EncounterDiagnosisAct [facility] Dysphonia active EncounterDiagnosisAct [facility] Difficult airway active 2023-08-17 ProblemAct H [facility] Dyspnea active 2023-08-16 ProblemAct [facility] Dysphagia active 2023-08-16 ProblemAct [facility] Severe malnutrition active 2023-08-21 ProblemAct [facility] Encounters Encounter Type Encounter Reason Primary Diagnosis Location Date Ambulatory Dysphonia Dysphonia [facility] 02/04/2025 Ambulatory Follow-up Follow-up [facility] 10/01/2024 Ambulatory Follow-up Follow-up [facility] 07/02/2024 Ambulatory Follow-up Follow-up [facility] 05/07/2024 Ambulatory Malignant neoplasm of overlapping sites of larynx Malignant neoplasm of overlapping sites of larynx [facility] 12/07/2023 Ambulatory [facility] 09/04/2023 Inpatient Failed or difficult intubation, subsequent encounter Failed or difficult intubation, subsequent encounter [facility] 08/16/2023 Care Team Organization Name Specialty Phone Email Start Date End Da te [facility]ON [facility]YOLA Primary [facility] 03/31/2025 [facility] 08/16/2023 [facility] 08/16/2023 03/05/20 [facility] 08/16/2023
--- OUTSIDE RECORDS SUMMARY | 2025-04-30 02:43 | XMS_ITS | Encounter Summary ---
Author Organization [facility] Address [address] [place] [address] Care Team Providers Care Motorcycle Racer Name Role Phone Meron Gil MD Primary Care Provider [phone] Encounter Details Date Type Department Care Team (Late st Contact Info) Description 03/31/2025 Scanned Document [facility] [address], [address] [place] [address] Sergio Tinajero MD [address] [place], [place] [id number] Social History Tobacco Use Types Packs/Day Years Used Date Smoking Tobacco: Former Cigarettes 0.5 66.9 S tarted: 1960 Smokeless Tobacco: Never Alcohol Use Standard Drinks/Week Comments Never 0 (1 standard drink = 0.6 oz pur e alcohol) [facility] Utilities Answer Date Recorded In the past 12 months has [employer], gas, oil, or water [employer] threatened to shut off services in your [...] place to sleep or slept in a m[facility]p (including now)? No 08/17/2023 Comments Unknown Sex [...] on filedocumented in this encounter Care Teams Motorcycle Racer Relationship Specialty Start Date End Date Meron Gil MD [address] [place] [address] PCP - General 08/16/23 documented as of this encounter
--- OUTSIDE RECORDS SUMMARY | 2025-04-30 02:43 | XMS_ITS | Encounter Summary ---
Author Organization [facility] Address [address] [place] [address] Care Team Providers Care Design Engineer Agricultural Equipment Name Role Phone Meron Gil MD Primary Care Provider [phone] Encounter Details Date Type Department Care Team (Late st Contact Info) Description 02/03/2025 Scanned Document [facility] [address], [address] [place] [address] Sergio Tinajero MD [address] [place], [place] [id number] Social History Tobacco Use Types Packs/Day Years Used Date Smoking Tobacco: Former Cigarettes 0.5 66.9 S tarted: 1960 Smokeless Tobacco: Never Alcohol Use Standard Drinks/Week Comments Never 0 (1 standard drink = 0.6 oz pur e alcohol) [facility] Utilities Answer Date Recorded In the past 12 months has [employer], gas, oil, or water [employer] threatened to shut off services in your [...] on filedocumented in this encounter Care Teams Design Engineer Agricultural Equipment Relationship Specialty Start Date End Date Meron Gil MD [address] [place] [address] PCP - General 08/16/23 documented as of this encounter
== END 2025-04-29 15:56 | disposition home or self-care (01) ==
LOC: HO.HMCC 14:14
PROVIDERS: PCP Internal Medicine; Visit Provider Internal Medicine
DX: E03.9 Hypothyroidism, unspecified (principal); I65.22 Occlusion and stenosis of left carotid artery; E78.5 Hyperlipidemia, unspecified; C32.9 Malignant neoplasm of larynx, unspecified

== ENCOUNTER → 2025-04-29 14:13 | Outpatient (BNVA) | payer MEDICARE, SELFPAY | PROVIDERS: PCP Internal Medicine; Visit Provider Internal Medicine | DX: I65.22 Occlusion and stenosis of left carotid artery (principal); E03.9 Hypothyroidism, unspecified; E78.5 Hyperlipidemia, unspecified; C32.9 Malignant neoplasm of larynx, unspecified | CPT/HCPCS: 99212 ==